=== PATIENT | male | born 1980 | race Caucasian/White ===

== ENCOUNTER 2021-05-20 10:32 | Inpatient (IN) | payer MEDICAID, SELFPAY ==
[2021-05-20] VITALS (8 sets, daily range): BP systolic 110–148; BP diastolic 54–75; PULSE 84–100; RESP 10–18; TEMP 37.2–38.5; O2SAT 96–99; BMI 20.3; BMI 20.8
--- NOTE | 2021-05-20 | ECG_ITS ---
Test Reason : ABD PAIN Blood Pressure : / mmHG Vent. Rate : 087 BPM Atrial Rate : 000 BPM P-R Int : 000 ms QRS Dur : 086 ms QT Int : 362 ms P-R-T Axes : 000 043 050 degrees QTc Int : 435 ms Artifact in tracing Likely sinus rhythm Minimal voltage criteria for LVH, may be normal variant ( Sokolow-Bonds ) Nonspecific ST and T wave abnormality Abnormal ECG No previous ECGs available Referred By: Generic ED Physician Electronically Signed By:STEPHEN TOM
--- NOTE | ~2021-05-20 | US_ITS ---
EXAMINATION: US ABDOMEN LIMITED CLINICAL INFORMATION: Elevated bilirubin, AST, ALT. Alcoholic hepatitis. History jaundice. COMPARISON: None TECHNIQUE: Real-time imaging of the right upper quadrant abdominal viscera. FINDINGS: PANCREAS: Obscured by bowel gas. LIVER: The liver is upper limits of normal, 19 cm in length and smooth contours. There is increased hepatic parenchymal echogenicity suggesting hepatic steatosis. There is no focal hepatic parenchymal lesion. Doppler shows hepatofugal portal flow away from the liver towards the spleen. Short segment splenic vein also interrogated and shows flow towards the spleen. There is mild intrahepatic biliary ductal dilatation. GALLBLADDER: Gallbladder is normal in size, 3 cm in diameter. There is circumferential wall thickening, 4-6 mm. Patient is tender in the area of the gallbladder with transducer compression. There is dependent sludge seen in the lumen. No focal calculus. No wall hyperemia on color Doppler. COMMON BILE DUCT: Borderline enlarged, measuring 0.7 cm. No visible ductal calculus or sludge. RIGHT KIDNEY: Right kidney measures 12.3 cm in length. There is no hydronephrosis. There are 2 specular echoes in the interpolar region without shadowing each under 4 mm. Possibility of nonobstructing calculi cannot be excluded. FREE FLUID: None. US/US abdomen limited IMPRESSION: 1. Mild intrahepatic biliary ductal dilatation. Common duct mildly enlarged at 7 mm. No visible ductal calculus or ductal sludge. 2. Dependent sludge in gallbladder lumen. No visible calculus. Circumferential gallbladder wall thickening 4-6 mm with positive sonographic Gilmore's sign. No pericholecystic fluid. 3. Diffuse hepatic steatosis. Liver surface is smooth. Color Doppler shows hepatofugal flow in portal vein, away from the liver and towards the spleen. No right upper quadrant ascites. 4. Pancreas obscured by bowel gas.
--- NOTE | ~2021-05-20 | CT_ITS ---
EXAMINATION: CT ABDOMEN AND PELVIS WITHOUT CONTRAST CLINICAL INFORMATION: Reevaluate diverticular abscess COMPARISON: 05/20/2021 TECHNIQUE: Multidetector volumetric imaging was performed from the superior aspect of the liver through the pubic symphysis. Sagittal and coronal reformatted images were obtained on the technologist's workstation. This CT examination was performed using dose optimization techniques as appropriate, variously including the following: *Automated exposure control *Adjustment of mA and/or kV according to patient size (this includes techniques or standardized protocols for targeted exams where dose is matched to indication/reason for exam; i.e. extremities or head) *Use of iterative reconstruction technique DLP: 486 mGy-cm FINDINGS: LUNG BASES: The visualized lung bases are unremarkable. LIVER, GALLBLADDER, AND BILIARY TREE: The liver is enlarged measuring 21 cm in CC dimension. Low attenuation with normal shape of the liver with no focal lesion. No biliary ductal dilatation. Trace perihepatic ascites. Distended gallbladder, increased from prior. No stones are seen. No definite wall thickening. PANCREAS: Unremarkable. SPLEEN: Unremarkable. ADRENAL GLANDS: Unremarkable. KIDNEYS AND URETERS: The kidneys are normal in size, shape, and attenuation. No hydronephrosis, hydroureter, or calculi seen. Improvement of previous left hydroureteronephrosis. Mild symmetric perinephric stranding.. BLADDER: Unremarkable. GASTROINTESTINAL TRACT: Stomach is unremarkable. Normal caliber small bowel. There is no obstruction. Extensive colonic diverticulosis. Persistent sigmoid colonic wall thickening with adjacent inflammation. Redemonstration of the peridiverticular abscess. Air-fluid level again noted. This measures 4.4 x 2.5 cm in transaxial dimension. This is similar to prior. No free air. ABDOMINAL WALL: No significant hernia is appreciated. LYMPH NODES: Normal. VASCULAR: Normal caliber aorta. Prominent varices in the retroperitoneum. PELVIC VISCERA: The prostate and seminal vesicles are unremarkable. OSSEOUS STRUCTURES: No acute or suspicious osseous abnormality. CT/CT abdomen pelvis wo con IMPRESSION: Persistent sigmoid diverticulitis. Similar size of the peridiverticular abscess compared to prior. Improvement of previous left hydroureteronephrosis. Patient has known cirrhosis. Increased distention of the gallbladder compared to prior. Fleischner guidelines were followed.
--- NOTE | ~2021-05-20 | CT_ITS ---
EXAMINATION: CT ABDOMEN AND PELVIS WITH CONTRAST CLINICAL INFORMATION: Abdominal pain COMPARISON: Ultrasound from today TECHNIQUE: Multidetector volumetric images were obtained from the superior aspect of the liver through the pubic symphysis following administration 85 mL of Omnipaque 350 intravenous contrast. Sagittal and coronal reformatted images were obtained on the technologist's workstation. Oral contrast: No This CT examination was performed using dose optimization techniques as appropriate, variously including the following: *Automated exposure control *Adjustment of mA and/or kV according to patient size (this includes techniques or standardized protocols for targeted exams where dose is matched to indication/reason for exam; i.e. extremities or head) *Use of iterative reconstruction technique DLP: 419 mGy-cm FINDINGS: LUNG BASES: Minimal right basilar atelectasis. LIVER, GALLBLADDER, AND BILIARY TREE: The liver is normal in size and shape with decreased attenuation. No focal hepatic lesion or biliary ductal dilatation is present. Normal distended gallbladder. Mild gallbladder wall thickening is suspected, as seen on prior ultrasound. No significant pericholecystic fluid. PANCREAS: Unremarkable. SPLEEN: Unremarkable. ADRENAL GLANDS: Unremarkable. KIDNEYS AND URETERS: The kidneys are normal in size, shape, and attenuation. There is mild left hydroureteronephrosis. The ureter is dilated to the level of the pelvic inflammation. No calculi. BLADDER: Unremarkable. GASTROINTESTINAL TRACT: The stomach is unremarkable. Normal caliber small bowel. No obstruction. There is diffuse colonic diverticulosis. Wall thickening of the sigmoid colon with adjacent inflammatory changes. This is consistent with diverticulitis. There is a peridiverticular abscess to the left of the sigmoid colon. This measures 4.9 x 2.8 x 3.5 cm. There is an air fluid level internally. No free intraperitoneal air. Normal appendix. ABDOMINAL WALL: No significant hernia is appreciated. LYMPH NODES: Normal. VASCULAR: Normal caliber aorta. Prominent varices are seen in the left upper abdomen and left periaortic region. The splenic vein is not well-defined. The portal vein is patent. PELVIC VISCERA: The prostate and seminal vesicles are unremarkable. OSSEOUS STRUCTURES: No acute or suspicious osseous abnormality. CT/CT abdomen pelvis w con IMPRESSION: Sigmoid diverticulitis with peridiverticular abscess. No free air. Left hydroureteronephrosis, likely associated with the pelvic inflammation. No calculi. Hepatic steatosis. Prominent abdominal varices are seen. Patient has known diagnosis of cirrhosis. Mild gallbladder wall thickening again noted as seen on recent ultrasound. This is nonspecific in the setting of liver disease. Fleischner guidelines were followed. This critical result was discussed with MICK Pace MD by telephone at 05/20/2021 5:06 PM and it was ascertained that the content and urgency of the report was understood at the time of direct communication.
--- NOTE | ~2021-05-20 | XR_ITS ---
EXAMINATION: XR CHEST CLINICAL INFORMATION: EtOH withdrawal. Hallucinations. COMPARISON: None TECHNIQUE: AP portable view of the chest was obtained. FINDINGS: No significant abnormality is noted involving the heart, lungs, mediastinum, bony thorax or soft tissues. XR/XR chest 1V IMPRESSION: No acute disease.
--- NOTE | 2021-05-20 12:44 | ED_ITS ---
HPI - Abdominal Pain General Chief Complaint: Abdominal Pain <MICK El Last Filed: 05/20/21 15:07> Stated Complaint: sharp pain body aches <MICK El Last Filed: 05/20/21 15:07> Time Seen by Provider: 05/20/21 12:17 <MICK El Last Filed: 05/20/21 15:07> Source: patient <MICK El Last Filed: 05/20/21 15:07> Mode of arrival: ambulatory <MICK El Last Filed: 05/20/21 15:07> History of Present Illness HPI narrative: 41-year-old male with past medical history of ETOH abuse, cirrhosis, presenting to the ED complaining of upper abdominal, nausea, vomiting, decreased p.o. intake, jaundice, and visual hallucinations worsening x couple days. Reports drinks about 8 nips daily, has been trying to cut back, drank 3 beers [place] and 1 beer yesterday, and had visual hallucinations of to people trying to steal something in his yard yesterday and called pushcart peddler however nobody was there. Also reports auditory hallucinations. Denies known history of alcohol withdrawal seizures. Also reports occasional cocaine use. Reports fever of 103 yesterday. Denies CP, SOB, pedal edema <MICK El - Last Filed: 05/20/21 15:07> MD elicited complaint: abdominal pain <MICK El - Last Filed: 05/20/21 15:07> Related Data Home Medications: Home Medications Medication Instructions Recorded Confirmed ibuprofen 200 mg tablet 400 mg PO Q6H PRN 05/20/21 05/20/21 <MICK El Last Filed: 05/20/21 15:07> Allergies/Adverse Reactions: Allergies Allergy/AdvReac Type Severity Reaction Status Date / Time No Known Allergies Allergy Unverified 02/13/20 16:10 <MICK El Last Filed: 05/20/21 15:07> Review of Systems Review of Systems Constitutional: No Fever, No Chills, No Fatigue, No Malaise ENT/Mouth: No Ear Pain, No Nasal Congestion, No sore throat, No Rhinorrhea, No Swallowing Difficulty Eyes: No Eye Pain, No Swelling, No Redness Cardiovascular: No Chest Pain, No SOB, No Edema, No Palpitations Respiratory: No Cough, No Sputum, No Dyspnea Gastrointestinal: + Nausea, + Vomiting, No Diarrhea, + Constipation, + Abdominal pain Genitourinary: No Urinary Frequency, No Hematuria, No Flank Pain Musculoskeletal: No joint pain, No Myalgias, No Joint Swelling Skin: + jaundice, No rash Neuro: No Weakness, No Loss of Consciousness, No Headache Psych: No Anxiety/Panic, No Depression, + visual and auditory hallucinations <MICK El Last Filed: 05/20/21 15:07> Yes all other systems are reviewed and are negative <MICK El - Last Filed: 05/20/21 15:07> Physical Exam Vital Signs: Vital Signs: Last Vital Signs Temp 99.3 F 05/20/21 16:52 Pulse 84 05/20/21 16:52 Resp 16 05/20/21 16:52 BP 110/60 05/20/21 16:52 Pulse Ox 99 05/20/21 16:52 BMI result Body Mass Index 20.3 <MICK El - Last Filed: 05/20/21 15:07> Vital Signs: Last Vital Signs Temp 99.3 F 05/20/21 16:52 Pulse 84 05/20/21 16:52 Resp 16 05/20/21 16:52 BP 110/60 05/20/21 16:52 Pulse Ox 99 05/20/21 16:52 BMI result Body Mass Index 20.3 <MICK Pace - Last Filed: 05/20/21 17:31> Const: Other: Jaundice <MICK El Last Filed: 05/20/21 15:07> General: cooperative, alert and awake <MICK El - Last Filed: 05/20/21 15:07> Orientation/consciousness: patient oriented x3 <MICK El Last Filed: 05/20/21 15:07> Limitations: no limitations <MICK El Last Filed: 05/20/21 15:07> HENMT: Other: Dry mucous membranes. Scleral icterus <MICK El Last Filed: 05/20/21 15:07> Head: Yes normal to inspection <MICK El Last Filed: 05/20/21 15:07> Ears: hearing grossly normal bilaterally <Bety Rodriguez MA - Last Filed: 05/20/21 15:07> General nose exam: Normal external nose present <Bety Rodriguez MA - Last Filed: 05/20/21 15:07> Face and sinus: Yes normal facial exam <Bety Rodriguez MA - Last Filed: 05/20/21 15:07> Throat: Yes posterior oropharynx normal <Bety Rodriguez MA - Last Filed: 05/20/21 15:07> Eyes: General: appearance normal, both eyes and all related structures <Bety Rodriguez, MA - Last Filed: 05/20/21 15:07> Pupils: Equal, round and reactive pupils present <Bety Rodriguez MA - Last Filed: 05/20/21 15:07> EOM: EOMs intact bilaterally <Bety Rodriguez MA - Last Filed: 05/20/21 15:07> Neck: Neck: Yes normal visual inspection and Yes no meningeal signs <Bety Rodriguez MA - Last Filed: 05/20/21 15:07> Resp: Effort & Inspection: normal respiratory effort <Bety Rodriguez MA - Last Filed: 05/20/21 15:07> Auscultation: clear to auscultation bilaterally, no rales, no rhonchi and no wheezes <Bety Rodriguez MA - Last Filed: 05/20/21 15:07> Cardio: Rate: regular rate <Bety Rodriguez MA - Last Filed: 05/20/21 15:07> Heart sounds: S1 normal heart sound present and S2 normal heart sound present <Bety Rodriguez MA - Last Filed: 05/20/21 15:07> GI: Inspection: Yes normal to inspection <Bety [facility] MA - Last Filed: 05/20/21 15:07> Palpation (GI): Soft to palpation, Tenderness to palpation present (GI) in the epigastrum and in the RUQ, no guarding and not rigid <Bety Michael MA - Last Filed: 05/20/21 15:07> Skin: Rashes: no rashes <Bety Michael, MA - Last Filed: 05/20/21 15:07> Wounds: no wounds <MICK El - Last Filed: 05/20/21 15:07> Neuro: General: patient oriented x3 and no meningeal signs <MICK El - Last Filed: 05/20/21 15:07> Cranial nerves: Yes Equal, round and reactive pupils present <MICK El - Last Filed: 05/20/21 15:07> Gait exam (Neuro): Normal gait present <MICK El - Last Filed: 05/20/21 15:07> Extrem: General: Yes normal to inspection and Yes no pedal edema <MICK El - Last Filed: 05/20/21 15:07> Course Course Course Narrative: -1403--mild leukocytosis of 11.6. Platelets low at 73. INR elevated at 2.3. Magnesium low at 1.1 >> 2g IV repletion ordered -lactic acid negative. Patient does not meet severe sepsis criteria at this time. Bilirubin elevated 10.3, AST/ALT elevated, alk-phos elevated, ammonia 75 > empiric IV Rocephin ordered. Low concern for SBP, no appreciable ascites XR chest 1V IMPRESSION: No acute disease. >>Will obtain right upper quadrant ultrasound to rule out stone/ obstruction -1400--ED care transferred to [facility] pending ultrasound and anticipated admission <MICK El - Last Filed: 05/20/21 15:07> Reevaluation(s) Reevaluation #1: Ordered CT which shows diverticulitis with 5 cm abscess with no free air but the abscess is causing a left hydronephrosis. 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 Patient's INR is 2.3. Spoke to General surgery,Dr Paz, who would like to drain abscess, but interventional Radiology will not touch patient with INR so high. Suggestion patient going to medical service and Dr. Paz will consult Ordered Zosyn, vitamin K. Pt being admitted to Dr Jones <MICK Pace - Last Filed: 05/20/21 17:31> MDM - Abdominal Pain MDM Narrative Medical decision making narrative: 41-year-old male with past medical history of ETOH abuse, cirrhosis, presenting to the ED complaining of upper abdominal, nausea, vomiting, decreased p.o. intake, jaundice, and visual hallucinations worsening x couple days. On exam vital signs stable, jaundiced with scleral icterus, abdomen soft with epigastric/RUQ TTP, awake and. Concern for alcoholic hallucinosis/withdrawal vs pancreatitis/alcoholic hepatitis. Rule out metabolic/infectious etiologies Plan: EKG, labs, UA, CXR, IVF, initiate phenobarb protocol, thiamine/folate/multivitamin, admission <MICK El - Last Filed: 05/20/21 15:07> Differential Diagnosis Differential diagnosis: Likely abdominal pain, constipation and pancreatitis <MICK El - Last Filed: 05/20/21 15:07> Medical Records Attestation: I reviewed the patient's medical records. <MICK El - Last Filed: 05/20/21 15:07> Lab Data Attestation: I reviewed the patient's lab results. <MICK El - Last Filed: 05/20/21 15:07> Result diagrams: : 05/20/21 13:04 05/20/21 13:04 <MICK El - Last Filed: 05/20/21 15:07> Labs: Lab Results 05/20/21 05/20/21 05/20/21 Range/Units 13:04 13:04 13:04 WBC 11.6 H (4.8-10.8) X10*3/uL RBC 2.70 L (4.60-5.80) X10*6/uL Hgb 9.8 L (14.0-18.0) g/dl Hct 28.1 L (42.0-52.0) % MCV 104.1 H (80.0-98.0) fL MCH 36.3 H (27.0-33.0) pg MCHC 34.9 (31.0-36.0) g/dl RDW 14.2 (11.0-16.0) % Plt Count 73 L (160-400) X10*3/uL MPV 10.3 (9.4-12.4) fL Immature Gran % (Auto) 0.6 H (0.0-0.4) % Neut % (Auto) 81.0 H (45-73) % Lymph % (Auto) 9.5 L (20-40) % Granite % (Auto) 8.3 (2-11) % Eos % (Auto) 0.2 (0-4) % Baso % (Auto) 0.4 (0-2) % Lymph # (Auto) 1.1 L (1.2-4.9) X10*3/uL [place]ite # (Auto) 1.0 (0.1-1.2) X10*3/uL Eos # (Auto) 0.0 (0.0-0.4) X10*3/uL Baso # (Auto) 0.1 (0.0-0.2) X10*3/uL Abs Immat Gran (auto) 0.07 H (0.00-0.03) X10*3/uL Absolute Neuts (auto) 9.4 H (2.0-8.3) x10*3/uL Absolute Nucleated RBC 0.000 (0.0-0.012) X10*3/uL Nucleated RBC % (auto) 0.0 (0.0-0.2) /100WBC PT 26.9 H (9.9-13.0) SEC INR 2.3 H (0.9-1.1) APTT 40.0 H (24.1-38.0) SEC Sodium 134 L (135-145) mmol/L Potassium 3.7 (3.3-5.1) mmol/L Chloride 99 (96-108) mmol/L Carbon Dioxide 26 (22-29) mmol/L Anion Gap 13 (12-20) BUN 9 (9-16) mg/dL Creatinine 0.77 (0.5-1.4) mg/dL Estim Creat Clear Calc 121.4 Estimated GFR > 60 Random Glucose 131 H (60-115) mg/dL Lactic Acid (0.5-2.0) mmol/L Calcium 8.4 (8.4-10.2) mg/dL Magnesium (1.6-2.6) mg/dL Total Bilirubin 10.3 H (0.0-1.0) mg/dL AST 173 H (5-37) U/L ALT 42 H (0-40) U/L Alkaline Phosphatase 285 H (39-117) U/L Ammonia (13-55) umol/L Total Protein 8.0 (6.5-8.0) g/dL Albumin 3.1 L (3.5-5.0) g/dL Lipase (8-78) U/L Urine Color Urine Appearance Urine pH (5.0-8.0) Ur Specific [place] (1.005-1.025) Urine Protein (NEG-TRACE) MG/DL Urine Glucose (UA) (NEG) MG/DL Urine Ketones (NEG) MG/DL Urine Blood (NEG) Urine Nitrite (NEG) Ur Leukocyte Esterase (NEG) Urine RBC (0) /HPF Urine WBC (0-4) /HPF Ur Squamous Epith Cells /LPF Urine Bacteria /LPF Urine Mucus /LPF Urine Opiates Screen (Not Detect) Urine Fentanyl Screen (Not Detect) Ur Barbiturates Screen (Not Detect) Ur Phencyclidine Scrn (Not Detect) Ur Amphetamines Screen (Not Detect) U Benzodiazepines Scrn (Not Detect) Urine Cocaine Screen (Not Detect) U Marijuana (THC) Screen (Not Detect) Ethyl Alcohol mg/dL COVID-19 (YESSI) (Negative) COVID-19 Clin Com 05/20/21 05/20/21 05/20/21 Range/Units 13:04 13:04 13:04 WBC (4.8-10.8) X10*3/uL RBC (4.60-5.80) X10*6/uL Hgb (14.0-18.0) g/dl Hct (42.0-52.0) % MCV (80.0-98.0) fL MCH (27.0-33.0) pg MCHC (31.0-36.0) g/dl RDW (11.0-16.0) % Plt Count (160-400) X10*3/uL MPV (9.4-12.4) fL Immature Gran % (Auto) (0.0-0.4) % Neut % (Auto) (45-73) % Lymph % (Auto) (20-40) % [place]ite % (Auto) (2-11) % Eos % (Auto) (0-4) % Baso % (Auto) (0-2) % Lymph # (Auto) (1.2-4.9) X10*3/uL [place]ite # (Auto) (0.1-1.2) X10*3/uL Eos # (Auto) (0.0-0.4) X10*3/uL Baso # (Auto) (0.0-0.2) X10*3/uL Abs Immat Gran (auto) (0.00-0.03) X10*3/uL Absolute Neuts (auto) (2.0-8.3) x10*3/uL Absolute Nucleated RBC (0.0-0.012) X10*3/uL Nucleated RBC % (auto) (0.0-0.2) /100WBC PT (9.9-13.0) SEC INR (0.9-1.1) APTT (24.1-38.0) SEC Sodium (135-145) mmol/L Potassium (3.3-5.1) mmol/L Chloride (96-108) mmol/L Carbon Dioxide (22-29) mmol/L Anion Gap (12-20) BUN (9-16) mg/dL Creatinine (0.5-1.4) mg/dL Estim Creat Clear Calc Estimated GFR Random Glucose (60-115) mg/dL Lactic Acid 1.8 (0.5-2.0) mmol/L Calcium (8.4-10.2) mg/dL Magnesium 1.1 L* (1.6-2.6) mg/dL Total Bilirubin (0.0-1.0) mg/dL AST (5-37) U/L ALT (0-40) U/L Alkaline Phosphatase (39-117) U/L Ammonia (13-55) umol/L Total Protein (6.5-8.0) g/dL Albumin (3.5-5.0) g/dL Lipase 15 (8-78) U/L Urine Color Urine Appearance Urine pH (5.0-8.0) Ur Specific [place] (1.005-1.025) Urine Protein (NEG-TRACE) MG/DL Urine Glucose (UA) (NEG) MG/DL Urine Ketones (NEG) MG/DL Urine Blood (NEG) Urine Nitrite (NEG) Ur Leukocyte Esterase (NEG) Urine RBC (0) /HPF Urine WBC (0-4) /HPF Ur Squamous Epith Cells /LPF Urine Bacteria /LPF Urine Mucus /LPF Urine Opiates Screen (Not Detect) Urine Fentanyl Screen (Not Detect) Ur Barbiturates Screen (Not Detect) Ur Phencyclidine Scrn (Not Detect) Ur Amphetamines Screen (Not Detect) U Benzodiazepines Scrn (Not Detect) Urine Cocaine Screen (Not Detect) U Marijuana (THC) Screen (Not Detect) Ethyl Alcohol < 10 mg/dL COVID-19 (YESSI) (Negative) COVID-19 Clin Com 05/20/21 05/20/21 05/20/21 Range/Units 13:04 13:04 16:51 WBC (4.8-10.8) X10*3/uL RBC (4.60-5.80) X10*6/uL Hgb (14.0-18.0) g/dl Hct (42.0-52.0) % MCV (80.0-98.0) fL MCH (27.0-33.0) pg MCHC (31.0-36.0) g/dl RDW (11.0-16.0) % Plt Count (160-400) X10*3/uL MPV (9.4-12.4) fL Immature Gran % (Auto) (0.0-0.4) % Neut % (Auto) (45-73) % Lymph % (Auto) (20-40) % [place]ite % (Auto) (2-11) % Eos % (Auto) (0-4) % Baso % (Auto) (0-2) % Lymph # (Auto) (1.2-4.9) X10*3/uL [place] # (Auto) (0.1-1.2) X10*3/uL Eos # (Auto) (0.0-0.4) X10*3/uL Baso # (Auto) (0.0-0.2) X10*3/uL Abs Immat Gran (auto) (0.00-0.03) X10*3/uL Absolute Neuts (auto) (2.0-8.3) x10*3/uL Absolute Nucleated RBC (0.0-0.012) X10*3/uL Nucleated RBC % (auto) (0.0-0.2) /100WBC PT (9.9-13.0) SEC INR (0.9-1.1) APTT (24.1-38.0) SEC Sodium (135-145) mmol/L Potassium (3.3-5.1) mmol/L Chloride (96-108) mmol/L Carbon Dioxide (22-29) mmol/L Anion Gap (12-20) BUN (9-16) mg/dL Creatinine (0.5-1.4) mg/dL Estim Creat Clear Calc Estimated GFR Random Glucose (60-115) mg/dL Lactic Acid (0.5-2.0) mmol/L Calcium (8.4-10.2) mg/dL Magnesium (1.6-2.6) mg/dL Total Bilirubin (0.0-1.0) mg/dL AST (5-37) U/L ALT (0-40) U/L Alkaline Phosphatase (39-117) U/L Ammonia 75 H (13-55) umol/L Total Protein (6.5-8.0) g/dL Albumin (3.5-5.0) g/dL Lipase (8-78) U/L Urine Color YELLOW Urine Appearance CLEAR Urine pH 7.5 (5.0-8.0) Ur Specific [place] 1.010 (1.005-1.025) Urine Protein 1+ H (NEG-TRACE) MG/DL Urine Glucose (UA) NEG (NEG) MG/DL Urine Ketones 5 (NEG) MG/DL Urine Blood NEG (NEG) Urine Nitrite NEG (NEG) Ur Leukocyte Esterase NEG (NEG) Urine RBC 0-2 (0) /HPF Urine WBC 0-2 (0-4) /HPF Ur Squamous Epith Cells 1+ /LPF Urine Bacteria NONE /LPF Urine Mucus 2+ /LPF Urine Opiates Screen (Not Detect) Urine Fentanyl Screen (Not Detect) Ur Barbiturates Screen (Not Detect) Ur Phencyclidine Scrn (Not Detect) Ur Amphetamines Screen (Not Detect) U Benzodiazepines Scrn (Not Detect) Urine Cocaine Screen (Not Detect) U Marijuana (THC) Screen (Not Detect) Ethyl Alcohol mg/dL COVID-19 (YESSI) Negative (Negative) COVID-19 Clin Com See Note 05/20/21 Range/Units 16:51 WBC (4.8-10.8) X10*3/uL RBC (4.60-5.80) X10*6/uL Hgb (14.0-18.0) g/dl Hct (42.0-52.0) % MCV (80.0-98.0) fL MCH (27.0-33.0) pg MCHC (31.0-36.0) g/dl RDW (11.0-16.0) % Plt Count (160-400) X10*3/uL MPV (9.4-12.4) fL Immature Gran % (Auto) (0.0-0.4) % Neut % (Auto) (45-73) % Lymph % (Auto) (20-40) % [place]ite % (Auto) (2-11) % Eos % (Auto) (0-4) % Baso % (Auto) (0-2) % Lymph # (Auto) (1.2-4.9) X10*3/uL [place] # (Auto) (0.1-1.2) X10*3/uL Eos # (Auto) (0.0-0.4) X10*3/uL Baso # (Auto) (0.0-0.2) X10*3/uL Abs Immat Gran (auto) (0.00-0.03) X10*3/uL Absolute Neuts (auto) (2.0-8.3) x10*3/uL Absolute Nucleated RBC (0.0-0.012) X10*3/uL Nucleated RBC % (auto) (0.0-0.2) /100WBC PT (9.9-13.0) SEC INR (0.9-1.1) APTT (24.1-38.0) SEC Sodium (135-145) mmol/L Potassium (3.3-5.1) mmol/L Chloride (96-108) mmol/L Carbon Dioxide (22-29) mmol/L Anion Gap (12-20) BUN (9-16) mg/dL Creatinine (0.5-1.4) mg/dL Estim Creat Clear Calc Estimated GFR Random Glucose (60-115) mg/dL Lactic Acid (0.5-2.0) mmol/L Calcium (8.4-10.2) mg/dL Magnesium (1.6-2.6) mg/dL Total Bilirubin (0.0-1.0) mg/dL AST (5-37) U/L ALT (0-40) U/L Alkaline Phosphatase (39-117) U/L Ammonia (13-55) umol/L Total Protein (6.5-8.0) g/dL Albumin (3.5-5.0) g/dL Lipase (8-78) U/L Urine Color Urine Appearance Urine pH (5.0-8.0) Ur Specific [place] (1.005-1.025) Urine Protein (NEG-TRACE) MG/DL Urine Glucose (UA) (NEG) MG/DL Urine Ketones (NEG) MG/DL Urine Blood (NEG) Urine Nitrite (NEG) Ur Leukocyte Esterase (NEG) Urine RBC (0) /HPF Urine WBC (0-4) /HPF Ur Squamous Epith Cells /LPF Urine Bacteria /LPF Urine Mucus /LPF Urine Opiates Screen Not Detected (Not Detect) Urine Fentanyl Screen Not Detected (Not Detect) Ur Barbiturates Screen POSITIVE H (Not Detect) Ur Phencyclidine Scrn Not Detected (Not Detect) Ur Amphetamines Screen Not Detected (Not Detect) U Benzodiazepines Scrn Not Detected (Not Detect) Urine Cocaine Screen POSITIVE H (Not Detect) U Marijuana (THC) Screen Not Detected (Not Detect) Ethyl Alcohol mg/dL COVID-19 (YESSI) (Negative) COVID-19 Clin Com <MICK El - Last Filed: 05/20/21 15:07> Lab Results 05/20/21 05/20/21 05/20/21 Range/Units 13:04 13:04 13:04 WBC 11.6 H (4.8-10.8) X10*3/uL RBC 2.70 L (4.60-5.80) X10*6/uL Hgb 9.8 L (14.0-18.0) g/dl Hct 28.1 L (42.0-52.0) % MCV 104.1 H (80.0-98.0) fL MCH 36.3 H (27.0-33.0) pg MCHC 34.9 (31.0-36.0) g/dl RDW 14.2 (11.0-16.0) % Plt Count 73 L (160-400) X10*3/uL MPV 10.3 (9.4-12.4) fL Immature Gran % (Auto) 0.6 H (0.0-0.4) % Neut % (Auto) 81.0 H (45-73) % Lymph % (Auto) 9.5 L (20-40) % [place] % (Auto) 8.3 (2-11) % Eos % (Auto) 0.2 (0-4) % Baso % (Auto) 0.4 (0-2) % Lymph # (Auto) 1.1 L (1.2-4.9) X10*3/uL [place] # (Auto) 1.0 (0.1-1.2) X10*3/uL Eos # (Auto) 0.0 (0.0-0.4) X10*3/uL Baso # (Auto) 0.1 (0.0-0.2) X10*3/uL Abs Immat Gran (auto) 0.07 H (0.00-0.03) X10*3/uL Absolute Neuts (auto) 9.4 H (2.0-8.3) x10*3/uL Absolute Nucleated RBC 0.000 (0.0-0.012) X10*3/uL Nucleated RBC % (auto) 0.0 (0.0-0.2) /100WBC PT 26.9 H (9.9-13.0) SEC INR 2.3 H (0.9-1.1) APTT 40.0 H (24.1-38.0) SEC Sodium 134 L (135-145) mmol/L Potassium 3.7 (3.3-5.1) mmol/L Chloride 99 (96-108) mmol/L Carbon Dioxide 26 (22-29) mmol/L Anion Gap 13 (12-20) BUN 9 (9-16) mg/dL Creatinine 0.77 (0.5-1.4) mg/dL Estim Creat Clear Calc 121.4 Estimated GFR > 60 Random Glucose 131 H (60-115) mg/dL Lactic Acid (0.5-2.0) mmol/L Calcium 8.4 (8.4-10.2) mg/dL Magnesium (1.6-2.6) mg/dL Total Bilirubin 10.3 H (0.0-1.0) mg/dL AST 173 H (5-37) U/L ALT 42 H (0-40) U/L Alkaline Phosphatase 285 H (39-117) U/L Ammonia (13-55) umol/L Total Protein 8.0 (6.5-8.0) g/dL Albumin 3.1 L (3.5-5.0) g/dL Lipase (8-78) U/L Urine Color Urine Appearance Urine pH (5.0-8.0) Ur Specific [place] (1.005-1.025) Urine Protein (NEG-TRACE) MG/DL Urine Glucose (UA) (NEG) MG/DL Urine Ketones (NEG) MG/DL Urine Blood (NEG) Urine Nitrite (NEG) Ur Leukocyte Esterase (NEG) Urine RBC (0) /HPF Urine WBC (0-4) /HPF Ur Squamous Epith Cells /LPF Urine Bacteria /LPF Urine Mucus /LPF Urine Opiates Screen (Not Detect) Urine Fentanyl Screen (Not Detect) Ur Barbiturates Screen (Not Detect) Ur Phencyclidine Scrn (Not Detect) Ur Amphetamines Screen (Not Detect) U Benzodiazepines Scrn (Not Detect) Urine Cocaine Screen (Not Detect) U Marijuana (THC) Screen (Not Detect) Ethyl Alcohol mg/dL COVID-19 (YESSI) (Negative) COVID-19 Clin Com 05/20/21 05/20/21 05/20/21 Range/Units 13:04 13:04 13:04 WBC (4.8-10.8) X10*3/uL RBC (4.60-5.80) X10*6/uL Hgb (14.0-18.0) g/dl Hct (42.0-52.0) % MCV (80.0-98.0) fL MCH (27.0-33.0) pg MCHC (31.0-36.0) g/dl RDW (11.0-16.0) % Plt Count (160-400) X10*3/uL MPV (9.4-12.4) fL Immature Gran % (Auto) (0.0-0.4) % Neut % (Auto) (45-73) % Lymph % (Auto) (20-40) % [place] % (Auto) (2-11) % Eos % (Auto) (0-4) % Baso % (Auto) (0-2) % Lymph # (Auto) (1.2-4.9) X10*3/uL [place] # (Auto) (0.1-1.2) X10*3/uL Eos # (Auto) (0.0-0.4) X10*3/uL Baso # (Auto) (0.0-0.2) X10*3/uL Abs Immat Gran (auto) (0.00-0.03) X10*3/uL Absolute Neuts (auto) (2.0-8.3) x10*3/uL Absolute Nucleated RBC (0.0-0.012) X10*3/uL Nucleated RBC % (auto) (0.0-0.2) /100WBC PT (9.9-13.0) SEC INR (0.9-1.1) APTT (24.1-38.0) SEC Sodium (135-145) mmol/L Potassium (3.3-5.1) mmol/L Chloride (96-108) mmol/L Carbon Dioxide (22-29) mmol/L Anion Gap (12-20) BUN (9-16) mg/dL Creatinine (0.5-1.4) mg/dL Estim Creat Clear Calc Estimated GFR Random Glucose (60-115) mg/dL Lactic Acid 1.8 (0.5-2.0) mmol/L Calcium (8.4-10.2) mg/dL Magnesium 1.1 L* (1.6-2.6) mg/dL Total Bilirubin (0.0-1.0) mg/dL AST (5-37) U/L ALT (0-40) U/L Alkaline Phosphatase (39-117) U/L Ammonia (13-55) umol/L Total Protein (6.5-8.0) g/dL Albumin (3.5-5.0) g/dL Lipase 15 (8-78) U/L Urine Color Urine Appearance Urine pH (5.0-8.0) Ur Specific [place] (1.005-1.025) Urine Protein (NEG-TRACE) MG/DL Urine Glucose (UA) (NEG) MG/DL Urine Ketones (NEG) MG/DL Urine Blood (NEG) Urine Nitrite (NEG) Ur Leukocyte Esterase (NEG) Urine RBC (0) /HPF Urine WBC (0-4) /HPF Ur Squamous Epith Cells /LPF Urine Bacteria /LPF Urine Mucus /LPF Urine Opiates Screen (Not Detect) Urine Fentanyl Screen (Not Detect) Ur Barbiturates Screen (Not Detect) Ur Phencyclidine Scrn (Not Detect) Ur Amphetamines Screen (Not Detect) U Benzodiazepines Scrn (Not Detect) Urine Cocaine Screen (Not Detect) U Marijuana (THC) Screen (Not Detect) Ethyl Alcohol < 10 mg/dL COVID-19 ([facility]ESSI) (Negative) COVID-19 Clin Com 05/20/21 05/20/21 05/20/21 Range/Units 13:04 13:04 16:51 WBC (4.8-10.8) X10*3/uL RBC (4.60-5.80) X10*6/uL Hgb (14.0-18.0) g/dl Hct (42.0-52.0) % MCV (80.0-98.0) fL MCH (27.0-33.0) pg MCHC (31.0-36.0) g/dl RDW (11.0-16.0) % Plt Count (160-400) X10*3/uL MPV (9.4-12.4) fL Immature Gran % (Auto) (0.0-0.4) % Neut % (Auto) (45-73) % Lymph % (Auto) (20-40) % [place] % (Auto) (2-11) % Eos % (Auto) (0-4) % Baso % (Auto) (0-2) % Lymph # (Auto) (1.2-4.9) X10*3/uL [place]ite # (Auto) (0.1-1.2) X10*3/uL Eos # (Auto) (0.0-0.4) X10*3/uL Baso # (Auto) (0.0-0.2) X10*3/uL Abs Immat Gran (auto) (0.00-0.03) X10*3/uL Absolute Neuts (auto) (2.0-8.3) x10*3/uL Absolute Nucleated RBC (0.0-0.012) X10*3/uL Nucleated RBC % (auto) (0.0-0.2) /100WBC PT (9.9-13.0) SEC INR (0.9-1.1) APTT (24.1-38.0) SEC Sodium (135-145) mmol/L Potassium (3.3-5.1) mmol/L Chloride (96-108) mmol/L Carbon Dioxide (22-29) mmol/L Anion Gap (12-20) BUN (9-16) mg/dL Creatinine (0.5-1.4) mg/dL Estim Creat Clear Calc Estimated GFR Random Glucose (60-115) mg/dL Lactic Acid (0.5-2.0) mmol/L Calcium (8.4-10.2) mg/dL Magnesium (1.6-2.6) mg/dL Total Bilirubin (0.0-1.0) mg/dL AST (5-37) U/L ALT (0-40) U/L Alkaline Phosphatase (39-117) U/L Ammonia 75 H (13-55) umol/L Total Protein (6.5-8.0) g/dL Albumin (3.5-5.0) g/dL Lipase (8-78) U/L Urine Color YELLOW Urine Appearance CLEAR Urine pH 7.5 (5.0-8.0) Ur Specific [place] 1.010 (1.005-1.025) Urine Protein 1+ H (NEG-TRACE) MG/DL Urine Glucose (UA) NEG (NEG) MG/DL Urine Ketones 5 (NEG) MG/DL Urine Blood NEG (NEG) Urine Nitrite NEG (NEG) Ur Leukocyte Esterase NEG (NEG) Urine RBC 0-2 (0) /HPF Urine WBC 0-2 (0-4) /HPF Ur Squamous Epith Cells 1+ /LPF Urine Bacteria NONE /LPF Urine Mucus 2+ /LPF Urine Opiates Screen (Not Detect) Urine Fentanyl Screen (Not Detect) Ur Barbiturates Screen (Not Detect) Ur Phencyclidine Scrn (Not Detect) Ur Amphetamines Screen (Not Detect) U Benzodiazepines Scrn (Not Detect) Urine Cocaine Screen (Not Detect) U Marijuana (THC) Screen (Not Detect) Ethyl Alcohol mg/dL COVID-19 ([facility]ESSI) Negative (Negative) COVID-19 Clin Com See Note 05/20/21 Range/Units 16:51 WBC (4.8-10.8) X10*3/uL RBC (4.60-5.80) X10*6/uL Hgb (14.0-18.0) g/dl Hct (42.0-52.0) % MCV (80.0-98.0) fL MCH (27.0-33.0) pg MCHC (31.0-36.0) g/dl RDW (11.0-16.0) % Plt Count (160-400) X10*3/uL MPV (9.4-12.4) fL Immature Gran % (Auto) (0.0-0.4) % Neut % (Auto) (45-73) % Lymph % (Auto) (20-40) % [place] % (Auto) (2-11) % Eos % (Auto) (0-4) % Baso % (Auto) (0-2) % Lymph # (Auto) (1.2-4.9) X10*3/uL [place] # (Auto) (0.1-1.2) X10*3/uL Eos # (Auto) (0.0-0.4) X10*3/uL Baso # (Auto) (0.0-0.2) X10*3/uL Abs Immat Gran (auto) (0.00-0.03) X10*3/uL Absolute Neuts (auto) (2.0-8.3) x10*3/uL Absolute Nucleated RBC (0.0-0.012) X10*3/uL Nucleated RBC % (auto) (0.0-0.2) /100WBC PT (9.9-13.0) SEC INR (0.9-1.1) APTT (24.1-38.0) SEC Sodium (135-145) mmol/L Potassium (3.3-5.1) mmol/L Chloride (96-108) mmol/L Carbon Dioxide (22-29) mmol/L Anion Gap (12-20) BUN (9-16) mg/dL Creatinine (0.5-1.4) mg/dL Estim Creat Clear Calc Estimated GFR Random Glucose (60-115) mg/dL Lactic Acid (0.5-2.0) mmol/L Calcium (8.4-10.2) mg/dL Magnesium (1.6-2.6) mg/dL Total Bilirubin (0.0-1.0) mg/dL AST (5-37) U/L ALT (0-40) U/L Alkaline Phosphatase (39-117) U/L Ammonia (13-55) umol/L Total Protein (6.5-8.0) g/dL Albumin (3.5-5.0) g/dL Lipase (8-78) U/L Urine Color Urine Appearance Urine pH (5.0-8.0) Ur Specific [place] (1.005-1.025) Urine Protein (NEG-TRACE) MG/DL Urine Glucose (UA) (NEG) MG/DL Urine Ketones (NEG) MG/DL Urine Blood (NEG) Urine Nitrite (NEG) Ur Leukocyte Esterase (NEG) Urine RBC (0) /HPF Urine WBC (0-4) /HPF Ur Squamous Epith Cells /LPF Urine Bacteria /LPF Urine Mucus /LPF Urine Opiates Screen Not Detected (Not Detect) Urine Fentanyl Screen Not Detected (Not Detect) Ur Barbiturates Screen POSITIVE H (Not Detect) Ur Phencyclidine Scrn Not Detected (Not Detect) Ur Amphetamines Screen Not Detected (Not Detect) U Benzodiazepines Scrn Not Detected (Not Detect) Urine Cocaine Screen POSITIVE H (Not Detect) U Marijuana (THC) Screen Not Detected (Not Detect) Ethyl Alcohol mg/dL COVID-19 (YESSI) (Negative) COVID-19 Clin Com <MICK Pace - Last Filed: 05/20/21 17:31> Critical Care Time Critical Care Time Critical Care Time: Yes <MICK El - Last Filed: 05/20/21 15:07> Total Critical Care Time: 45 <MICK El - Last Filed: 05/20/21 15:07> Attestation: I have personally provided critical care time exclusive of time spent on separately billable procedures. Time includes review of lab data, radiology results, discussion with consultants, and monitoring for potential decompensation. Intervention performed as documented. <MICK El - Last Filed: 05/20/21 15:07> Discharge Plan Discharge Patient Disposition: Admitted As Inpatient <MICK El - Last Filed: 05/20/21 15:07> [facility] Past Medical History Attestation statement: The following information was validated with the patient. <MICK El - Last Filed: 05/20/21 15:07> Medical History: Medical History Alcohol abuse Liver failure <MICK El - Last Filed: 05/20/21 15:07> Social History Social History: Social History Alcohol intake: current Alcohol intake frequency: 3 or more drinks per day Alcohol type: beer, wine and hard liquor Patient Tobacco Use Status: Current everyday Tobacco user Use of substances other than those prescribed or required for medical reasons: No Advance Directives: No Advance Directives Information Provided: Yes <MICK El - Last Filed: 05/20/21 15:07>
[2021-05-20 13:12] LABS: MANUAL DIFF FLAG NO
[2021-05-20 13:14] LABS: Basophils Absolute Auto 0.1 X10*3/uL (0.0-0.2); Basophils Percent Auto 0.4 % (0-2); Eosinophils Percent Auto 0.2 % (0-4); Hematocrit 28.1 % (42.0-52.0); Hemoglobin 9.8 g/dl (14.0-18.0); Imm Gran Abs Auto 0.07 X10*3/uL (0.00-0.03); Imm Gran Pct Auto 0.6 % (0.0-0.4); Lymphocytes Absolute Auto 1.1 X10*3/uL (1.2-4.9); Lymphocytes Percent Auto 9.5 % (20-40); Mean Corpuscular HGB Conc 34.9 g/dl (31.0-36.0); Mean Corpuscular Hemoglobin 36.3 pg (27.0-33.0); Mean Corpuscular Volume 104.1 fL (80.0-98.0); Mean Platelet Volume 10.3 fL (9.4-12.4); Monocytes Percent Auto 8.3 % (2-11); Neutrophils Absolute Auto 9.4 x10*3/uL (2.0-8.3); Red Cell Distribution Width 14.2 % (11.0-16.0); White Blood Count 11.6 X10*3/uL (4.8-10.8)
[2021-05-20 13:18] LABS: INTERNATIONAL NORM RATIO 2.3 (0.9-1.1); Prothrombin Time 26.9 SEC (9.9-13.0)
[2021-05-20 13:21] LABS: Ammonia 75 umol/L (13-55)
[2021-05-20 13:25] LABS: Lactic Acid 1.8 mmol/L (0.5-2.0)
[2021-05-20 13:26] LABS: Ethanol < 10 mg/dL
[2021-05-20 13:27] LABS: COVID-19 Test Negative (Negative)
[2021-05-20] MEDS: Folic Acid 1 MG in 0.9 % Sodium Chloride 50 ML 100.4 MG IV (13:32)
[2021-05-20] MEDS: 0.9 % Sodium Chloride 1,000 ML 999 ML IVCONT ×2 (13:32→15:10)
[2021-05-20] MEDS: Thiamine HCL 200 MG in 0.9 % Sodium Chloride 100 ML 204 MG IV (13:34)
[2021-05-20 13:39] LABS: Lipase 15 U/L (8-78); Magnesium 1.1 mg/dL (1.6-2.6)
[2021-05-20 13:43] LABS: Alanine Aminotransferase 42 U/L (0-40); Albumin Level 3.1 g/dL (3.5-5.0); Alkaline Phosphatase 285 U/L (39-117); Anion Gap 13 (12-20); Aspartate Amino Transferase 173 U/L (5-37); Bilirubin Total 10.3 mg/dL (0.0-1.0); Blood Urea Nitrogen 9 mg/dL (9-16); Calcium 8.4 mg/dL (8.4-10.2); Carbon Dioxide 26 mmol/L (22-29); Chloride 99 mmol/L (96-108); Creatinine Clr Calc Pharmacy 121.4; Estimated Glomerular Filt Rate > 60; Glucose Random 131 mg/dL (60-115); Platelet Count 73 X10*3/uL (160-400); Potassium 3.7 mmol/L (3.3-5.1); Sodium 134 mmol/L (135-145)
--- NOTE | 2021-05-20 13:45 | PHA.MEDREC ---
Pharmacy Consult ? Medication Reconciliation Pharmacy has completed the medication reconciliation. Pt states he was discharged from [facility] earlier this year with about 9 medications but has not taken anything in over 6 months because he never went back for refills and it was too many meds to take. Arelis Duran, [facility]
[2021-05-20] MEDS: Multivitamin TABLET 1 TAB PO (14:00)
[2021-05-20] MEDS: Magnesium Sulfate/H2O 2 GM/50 ML PIGGYBACK IV (14:00)
[2021-05-20] MEDS: PHENobarbitaL sodium 130 MG/ML VIAL 272 MG IM (15:08)
[2021-05-20] MEDS: Ketorolac Tromethamine 30 MG/ML VIAL IVPUSH (15:09)
[2021-05-20] MEDS: iohexoL 350 MG/ML 100 ML INFUS..BTL IV (16:36)
[2021-05-20 16:57] LABS: Appearance Urine CLEAR; Color Urine YELLOW; Glucose Urine UA NEG (NEG); Leukocyte Esterase Urine NEG (NEG); Nitrite Urine NEG (NEG); PH 7.5 (5.0-8.0); UACC Culture Trigger NO; Urine Blood NEG (NEG); Urine Ketones 5 MG/DL (NEG); Urine Protein 1+ MG/DL (NEG-TRACE)
[2021-05-20] MEDS: cefTRIAXone sodium 1 GM in 0.9 % Sodium Chloride 50 ML IV (17:00)
[2021-05-20 17:09] LABS: Mucus Urine 2+ /LPF; RBC Urine 0-2 /HPF (0); Squamous Epithelial Cell Urine 1+ /LPF; WBC Urine 0-2 /HPF (0-4)
[2021-05-20 17:11] LABS: Amphetamine Screen Urine Not Detected (Not Detect); Barbiturates, Urine POSITIVE (Not Detect); Benzodiazepines Screen Urine Not Detected (Not Detect); Cannabinoid Screen Urine Not Detected (Not Detect); Cocaine Screen Urine POSITIVE (Not Detect); Fentanyl, urine Not Detected (Not Detect); Opiate Screen Urine Not Detected (Not Detect); Phencyclidine Screen Urine Not Detected (Not Detect)
--- NOTE | 2021-05-20 17:40 | PM.IMHP ---
History of Present Illness Date of Service: 05/20/21 Chief Complaint: Abdominal pain 41-year-old male with past medical history of ETOH abuse, cirrhosis presents to the ED with lower abdominal that is severe and is assicated with nausea, vomiting, decreased p.o. intake, fever of up to 103 at home, jaundice, and visual hallucinations for about 4 days now since he stopped drinking. Typically drinks about 10 nips daily and 4 beers, has beeen attempting to cut down. He tells me he has not drank in for days but told ED provider that he had beer yesterday. Work in ED includ WBC of 11.6, US of abdomen showed fatty liver and gall bladder sludge. A CT of abdoment shows sigmoid diverticulitis with with peridivericular abscess that measures 4.9 x 2.8 x 3.5 cm. There is an air fluid level internally. No free intraperitoneal air. Normal appendix. Discussed with Dr. Paz and advises IR guided drainage given elevated INR of 2.. During my interactio with patient he was lucid without overt signs of alcohol withdrawal but it should be of note that he has been treated with Phenobarbital. Additionally mejia positive cocaine and barbiuturates in the urine. Mag level is 1.1. Temperature here is 101 and has gone down. Review of Systems Review of Systems: + fever, jaudice, abdominal pain, nausea and vomitting, no blood in stool, Yes all other systems are reviewed and are negative [facility] Medical History (Updated 05/20/21 @ 17:55 by Keegan Jones MD) Acute alcoholic hepatitis Alcohol abuse Liver failure Pertinent family history: he repots family history of alcohol use Social History Household Members: Family and None Housing: House Do you presently have visiting nurse or other home services: Yes Alcohol intake: current Alcohol intake frequency: 3 or more drinks per day Alcohol type: beer, wine and hard liquor Patient Tobacco Use Status: Current everyday Tobacco user Tobacco use type: Cigarette Cigarette Packs Per Day: 1 Cigarettes Per Day: 20.0 Years Smoked: 18 Patient Interested in Nicotine Replacement: No Patient Given Instructions on How to Stop Smoking: No (pt dont want to stop) Use of substances other than those prescribed or required for medical reasons: Yes Substance Use Type: IV Drugs Substance Use Frequency: Socially Last Used Substance: Weeks (ago) Currently Displaying Signs/Symptoms of Drug Intoxication Withdrawal: No Have you been hit, kicked, punched, or otherwise hurt by someone within the past year? If so, by whom?: No Do you feel safe in your current relationship?: Yes Is there a partner from a previous relationship who is making you feel unsafe now?: No Are you made to feel afraid or neglected: No Advance Directives: No Advance Directives Information Provided: Yes Do you have thoughts of harming others: None Do you have a plan to hurt others: No Plan Recently lost weight without trying: No Eating poorly because of decreased appetite: No Nutrition Risks: No Nutritional Risk Poor oral hygiene: No Meds Allergies Allergy/AdvReac Type Severity Reaction Status Date / Time No Known Allergies Allergy Unverified 02/13/20 16:10 Active Medications: Current Medications Piperacillin Sod/Tazobactam (Sod 4.5 gm/ Sodium Chloride) 100 mls @ 200 mls/hr IV ONCE ONE Stop: 05/20/21 17:48 Phytonadione 10 mg/ Sodium (Chloride) 51 mls @ 51 mls/hr IV ONCE ONE Stop: 05/20/21 18:19 Medication (No Benzodiazepines) 1 each MISCELLANE DAILY [facility] Pharmacy Consult (Consult Rx Perform Med Rec) 1 each MISCELLANE ONCE PRN PRN Reason: Consult order Pharmacy Consult (Consult Rx Perform Med Rec) 1 each MISCELLANE ONCE PRN PRN Reason: Consult order Phenobarbital (Phenobarbital 15 Mg Tablet) 45 mg PO BID [facility]; Protocol Stop: 05/22/21 21:01 Phenobarbital (Phenobarbital 30 Mg Tablet) 30 mg PO BID HARJIT; Protocol Stop: 05/24/21 21:01 Phenobarbital (Phenobarbital 15 Mg Tablet) 15 mg PO DAILY [facility]; Protocol Stop: 05/26/21 09:01 Phenobarbital Sodium (Phenobarbital Sodium 130 Mg/Ml Vial) 204 mg IM ONCE ONE; Protocol Stop: 05/20/21 20:01 Home Medications Medication Instructions Recorded Confirmed Last Taken Type ibuprofen 200 mg tablet 400 mg PO Q6H PRN 05/20/21 05/20/21 Unknown History Physical Exam Vital Signs and Narrative: Vital Signs: Last Vital Signs Temp 99.3 F 05/20/21 16:52 Pulse 84 05/20/21 16:52 Resp 16 05/20/21 16:52 BP 110/60 05/20/21 16:52 Pulse Ox 99 05/20/21 16:52 BMI result Body Mass Index 20.3 Const: Other: Constitutional: Alert, in no distress, Mental Status: Oriented to person, place and time. Eyes: Pupils are equal, round and reactive to light. sclera icteris Ear, Nose and Throat: Oropharynx clear, mucous membranes moist. Ears and nose without eformities. Trachea midline. Respiratory: Clear to auscultation. No wheezing, rales or rhonchi. Cardiovascular: S1 S2 regular. No murmurs, rubs or gallops. Gastrointestinal: Abdomen soft, tender at lower abdomen more prominent in left lq, non-distended. Normal bowel sounds.? Neurologic: Cranial nerves II-XII grossly intact. No focal neurological deficits. Moves all extremities spontaneously.? Skin: No rashes or lesions.? Musculoskeletal: No cyanosis or clubbing. Mild tremors. Psychiatric: Normal mood and affect? Results Labs CBC and Chem 7: 05/21/21 05:21 05/21/21 05:21 Labs: Laboratory Results - last 24 hr 05/20/21 05/20/21 05/20/21 13:04 13:04 13:04 MCV 104.1 H MCH 36.3 H MCHC 34.9 RDW 14.2 Plt Count 73 L MPV 10.3 Immature Gran % (Auto) 0.6 H Neut % (Auto) 81.0 H Lymph % (Auto) 9.5 L [place] % (Auto) 8.3 Eos % (Auto) 0.2 Baso % (Auto) 0.4 Lymph # (Auto) 1.1 L [place] # (Auto) 1.0 Eos # (Auto) 0.0 Baso # (Auto) 0.1 Abs Immat Gran (auto) 0.07 H Absolute Neuts (auto) 9.4 H Absolute Nucleated RBC 0.000 Nucleated RBC % (auto) 0.0 PT 26.9 H INR 2.3 H APTT 40.0 H Anion Gap 13 Estim Creat Clear Calc 121.4 Estimated GFR > 60 Random Glucose 131 H Lactic Acid Calcium 8.4 Magnesium Total Bilirubin 10.3 H AST 173 H ALT 42 H Alkaline Phosphatase 285 H Ammonia Total Protein 8.0 Albumin 3.1 L Lipase Urine Color Urine Appearance Urine pH Ur Specific [place] Urine Protein Urine Glucose (UA) Urine Ketones Urine Blood Urine Nitrite Ur Leukocyte Esterase Urine RBC Urine WBC Ur Squamous Epith Cells Urine Bacteria Urine Mucus Urine Opiates Screen Urine Fentanyl Screen Ur Barbiturates Screen Ur Phencyclidine Scrn Ur Amphetamines Screen U Benzodiazepines Scrn Urine Cocaine Screen U Marijuana (THC) Screen Ethyl Alcohol COVID-19 (YESSI) COVID-19 Clin Com 05/20/21 05/20/21 05/20/21 13:04 13:04 13:04 MCV MCH MCHC RDW Plt Count MPV Immature Gran % (Auto) Neut % (Auto) Lymph % (Auto) [place] % (Auto) Eos % (Auto) Baso % (Auto) Lymph # (Auto) [place] # (Auto) Eos # (Auto) Baso # (Auto) Abs Immat Gran (auto) Absolute Neuts (auto) Absolute Nucleated RBC Nucleated RBC % (auto) PT INR APTT Anion Gap Estim Creat Clear Calc Estimated GFR Random Glucose Lactic Acid 1.8 Calcium Magnesium 1.1 L* Total Bilirubin AST ALT Alkaline Phosphatase Ammonia Total Protein Albumin Lipase 15 Urine Color Urine Appearance Urine pH Ur Specific [place] Urine Protein Urine Glucose (UA) Urine Ketones Urine Blood Urine Nitrite Ur Leukocyte Esterase Urine RBC Urine WBC Ur Squamous Epith Cells Urine Bacteria Urine Mucus Urine Opiates Screen Urine Fentanyl Screen Ur Barbiturates Screen Ur Phencyclidine Scrn Ur Amphetamines Screen U Benzodiazepines Scrn Urine Cocaine Screen U Marijuana (THC) Screen Ethyl Alcohol < 10 COVID-19 (YESSI) COVID-19 Clin Com 05/20/21 05/20/21 05/20/21 13:04 13:04 16:51 MCV MCH MCHC RDW Plt Count MPV Immature Gran % (Auto) Neut % (Auto) Lymph % (Auto) [place] % (Auto) Eos % (Auto) Baso % (Auto) Lymph # (Auto) [place] # (Auto) Eos # (Auto) Baso # (Auto) Abs Immat Gran (auto) Absolute Neuts (auto) Absolute Nucleated RBC Nucleated RBC % (auto) PT INR APTT Anion Gap Estim Creat Clear Calc Estimated GFR Random Glucose Lactic Acid Calcium Magnesium Total Bilirubin AST ALT Alkaline Phosphatase Ammonia 75 H Total Protein Albumin Lipase Urine Color YELLOW Urine Appearance CLEAR Urine pH 7.5 Ur Specific [place] 1.010 Urine Protein 1+ H Urine Glucose (UA) NEG Urine Ketones 5 Urine Blood NEG Urine Nitrite NEG Ur Leukocyte Esterase NEG Urine RBC 0-2 Urine WBC 0-2 Ur Squamous Epith Cells 1+ Urine Bacteria NONE Urine Mucus 2+ Urine Opiates Screen Urine Fentanyl Screen Ur Barbiturates Screen Ur Phencyclidine Scrn Ur Amphetamines Screen U Benzodiazepines Scrn Urine Cocaine Screen U Marijuana (THC) Screen Ethyl Alcohol COVID-19 (YESSI) Negative COVID-19 Clin Com See Note 05/20/21 16:51 MCV MCH MCHC RDW Plt Count MPV Immature Gran % (Auto) Neut % (Auto) Lymph % (Auto) [place] % (Auto) Eos % (Auto) Baso % (Auto) Lymph # (Auto) [place] # (Auto) Eos # (Auto) Baso # (Auto) Abs Immat Gran (auto) Absolute Neuts (auto) Absolute Nucleated RBC Nucleated RBC % (auto) PT INR APTT Anion Gap Estim Creat Clear Calc Estimated GFR Random Glucose Lactic Acid Calcium Magnesium Total Bilirubin AST ALT Alkaline Phosphatase [place] Total Protein Albumin Lipase Urine Color Urine Appearance Urine pH Ur Specific [place] Urine Protein Urine Glucose (UA) Urine Ketones Urine Blood Urine Nitrite Ur Leukocyte Esterase Urine RBC Urine WBC Ur Squamous Epith Cells Urine Bacteria Urine Mucus Urine Opiates Screen Not Detected Urine Fentanyl Screen Not Detected Ur Barbiturates Screen POSITIVE H Ur Phencyclidine Scrn Not Detected Ur Amphetamines Screen Not Detected U Benzodiazepines Scrn Not Detected Urine Cocaine Screen POSITIVE H U Marijuana (THC) Screen Not Detected Ethyl Alcohol COVID-19 (YESSI) COVID-19 Clin Com Imaging Radiologist's Impressions: Impressions Chest X-Ray 05/20/21 12:51 IMPRESSION: No acute disease. Abdomen Ultrasound 05/20/21 14:51 IMPRESSION: 1. Mild intrahepatic biliary ductal dilatation. Common duct mildly enlarged at 7 mm. No visible ductal calculus or ductal sludge. 2. Dependent sludge in gallbladder lumen. No visible calculus. Circumferential gallbladder wall thickening 4-6 mm with positive sonographic Gilmore's sign. No pericholecystic fluid. 3. Diffuse hepatic steatosis. Liver surface is smooth. Color Doppler shows hepatofugal flow in portal vein, away from the liver and towards the spleen. No right upper quadrant ascites. 4. Pancreas obscured by bowel gas. Abdomen/Pelvis CT 05/20/21 16:45 IMPRESSION: Sigmoid diverticulitis with peridiverticular abscess. No free air. Left hydroureteronephrosis, likely associated with the pelvic inflammation. No calculi. Hepatic steatosis. Prominent abdominal varices are seen. Patient has known diagnosis of cirrhosis. Mild gallbladder wall thickening again noted as seen on recent ultrasound. This is nonspecific in the setting of liver disease. Fleischner guidelines were followed. This critical result was discussed with MICK Pace MD by telephone at 05/20/2021 5:06 PM and it was ascertained that the content and urgency of the report was understood at the time of direct communication. Assessment and Plan (1) Diverticulitis of intestine with abscess: Status: Acute (2) Alcohol withdrawal: Status: Acute (3) Acute alcoholic hallucinosis: Status: Acute (4) Substance abuse: Status: Acute (5) Hypomagnesemia: Status: Acute 41 year old male with alcohol dependence here with abdominal pain and found to acute diverticulitis with abscess formation, and in alcohol withdrwal state 1/ Sepsis d/t diverticulitis with abscess, no severe sepsiss (elevated Bilirubin, elevated LFTs, elevated INR and low platlets all related to alcohol liver disease)7 2/Acute diverticulitis with absesss -IV Zoscyn -Surgery consult -Follow blood cultures 3/Acute alcolic hepatitis with hyerbilirubinemia -Avoid hepatoxins, GI eval -obviously needs to stop drinking -Care consult before discharge 4/Coagulopathy d/t liver failure-- INR 2.3, -Daily INR -IV vitamin daily x 3 days -GI consult 5/Alcohol withdrawal-- -Phenobarbital -Vitamamin B1, folate 6/HypOmagnesemia--from alcohol use -IV replacement and recheck tomorrow 7/Thrombocytospenia--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
[2021-05-20] MEDS: PHENobarbitaL sodium 130 MG/ML VIAL 204 MG IM ×2 (18:02→20:25)
[2021-05-20] MEDS: Phytonadione (Vit K1) 10 MG in 0.9 % Sodium Chloride 50 ML 51 MG IV (18:56)
[2021-05-20] MEDS: Dextrose 5 % and 0.9 % NaCl 1,000 ML 100 ML IVCONT (20:24)
[2021-05-20] MEDS: Folic Acid 1 MG TABLET PO (20:25)
[2021-05-20] MEDS: 0.9 % Sodium Chloride Flush 3 ML SYRINGE IVFLUSH (20:29)
[2021-05-20] MEDS: Piperacillin Sodium/Tazobactam 3.375 GM in 0.9 % Sodium Chloride 50 ML IV (23:35)
[2021-05-21] VITALS (9 sets, daily range): BP systolic 106–146; BP diastolic 52–65; PULSE 85–114; RESP 16–20; TEMP 36.8–38; O2SAT 95–99; BMI 20.8
[2021-05-21] MEDS: Dextrose 5 % and 0.9 % NaCl 1,000 ML 100 ML IVCONT (05:22)
[2021-05-21] MEDS: Piperacillin Sodium/Tazobactam 3.375 GM in 0.9 % Sodium Chloride 50 ML IV ×3 (05:25→18:39)
[2021-05-21 05:56] LABS: Mean Corpuscular Hemoglobin 36.1 pg (27.0-33.0); PLT CLUMP 1
[2021-05-21 05:58] LABS: Hematocrit 25.8 % (42.0-52.0); Hemoglobin 8.8 g/dl (14.0-18.0); Mean Corpuscular HGB Conc 34.1 g/dl (31.0-36.0); Mean Corpuscular Volume 105.7 fL (80.0-98.0); Mean Platelet Volume 10.4 fL (9.4-12.4); Red Blood Count 2.44 X10*6/uL (4.60-5.80); Red Cell Distribution Width 14.5 % (11.0-16.0)
[2021-05-21 06:06] LABS: Platelet Count 67 X10*3/uL (160-400); White Blood Count 11.2 X10*3/uL (4.8-10.8)
[2021-05-21 06:15] LABS: INTERNATIONAL NORM RATIO 2.4 (0.9-1.1)
[2021-05-21 06:30] LABS: Alanine Aminotransferase 33 U/L (0-40); Albumin Level 2.5 g/dL (3.5-5.0); Alkaline Phosphatase 226 U/L (39-117); Anion Gap 10 (12-20); Aspartate Amino Transferase 130 U/L (5-37); Bilirubin Total 7.3 mg/dL (0.0-1.0); Blood Urea Nitrogen 6 mg/dL (9-16); Calcium 7.2 mg/dL (8.4-10.2); Carbon Dioxide 22 mmol/L (22-29); Chloride 106 mmol/L (96-108); Creatinine Clr Calc Pharmacy 147.6; Estimated Glomerular Filt Rate > 60; Glucose Random 122 mg/dL (60-115); Potassium 3.2 mmol/L (3.3-5.1); Sodium 135 mmol/L (135-145); Total Protein 6.5 g/dL (6.5-8.0)
[2021-05-21] MEDS: Haloperidol Lactate 5 MG/ML VIAL 2.5 MG IM (07:58)
[2021-05-21] MEDS: hydrOXYzine HCL 50 MG/ML VIAL 25 MG IM (08:01)
--- NOTE | 2021-05-21 08:35 | PC.NURSE ---
Patient wanted to leave AMA, I followed down elevator to front lobby. Hospital security and nursing supervisors were able to talk him into going back to his room. Pt. was disoriented restless and shouting. ordered Haldol 2.5 mg and Atarax 25 mg. Doses given 7:45 and 7:55. Pt is sleeping as of now and periodically using the phone. Will continue to monitor.
--- NOTE | 2021-05-21 10:25 | P.CONGS_ITS ---
History of Present Illness Consult details Consult date: 05/21/21 Narrative: 41-year-old male with a long history of alcohol abuse and cirrhosis, who came to the emergency room last night because of abdominal pain, nausea, vomiting, and hallucinations. The patient currently does not seem to engage much and says that he is tired and sleepy so most of the history is from the H and P He reported to drink about 10 nips every day. He currently says that he has a pain has improved significantly. He was however reported to have fever up to 103 at home. He did answer some simple questions but stated that he was tired and not want to go into details of his history. Review of Systems Constitutional: Constitutional: Reports chills and Reports fever(s) Cardiovascular: Cardiovascular: Denies chest pain, Denies dyspnea and Denies d yspnea on exertion Respiratory: Respiratory: Denies cough, Denies dyspnea and Denies dyspnea on exertion Gastrointestinal: Gastrointestinal: Denies hematochezia, Denies change in bowel habits, Denies constipation and Denies diarrhea Genitourinary: Genitourinary: Denies hematuria and Denies difficulty urinating Musculoskeletal: Musculoskeletal: Denies back pain and Denies limited range of motion Neurologic: Denies focal weakness and Denies convulsions Psychiatric: Psychiatric: Denies depression and Denies mood swings PMFSH Past Medical History Medical History (Updated 05/20/21 @ 17:55 by Keegan Jones MD) Acute alcoholic hepatitis Alcohol abuse Liver failure Social History Social History Household Members: Family and None Housing: House Do you presently have visiting nurse or other home services: Yes Alcohol intake: current Alcohol intake frequency: 3 or more drinks per day Alcohol type: beer, wine and hard liquor Patient Tobacco Use Status: Current everyday Tobacco user Tobacco use type: Cigarette Cigarette Packs Per Day: 1 Cigarettes Per Day: 20.0 Years Smoked: 18 Patient Interested in Nicotine Replacement: No Patient Given Instructions on How to Stop Smoking: No (pt dont want to stop) Use of substances other than those prescribed or required for medical reasons: Yes Substance Use Type: IV Drugs Substance Use Frequency: Socially Last Used Substance: Weeks (ago) Currently Displaying Signs/Symptoms of Drug Intoxication Withdrawal: Yes Have you been hit, kicked, punched, or otherwise hurt by someone within the past year? If so, by whom?: No Do you feel safe in your current relationship?: Yes Is there a partner from a previous relationship who is making you feel unsafe now?: No Are you made to feel afraid or neglected: No Advance Directives: No Advance Directives Information Provided: Yes Do you have thoughts of harming others: None Do you have a plan to hurt others: No Plan Recently lost weight without trying: No Eating poorly because of decreased appetite: No Nutrition Risks: No Nutritional Risk Poor oral hygiene: No service: No Current occupational status: employed Meds Allergies Allergy/AdvReac Type Severity Reaction Status Date / Time No Known Allergies Allergy Unverified 02/13/20 16:10 Active Medications: Current Medications Folic Acid (Folic Acid 1 Mg Tablet) 1 mg PO DAILY [facility] Stop: 05/22/21 09:01 Last Admin: 05/20/21 20:25 Dose: 1 mg Documented by: Dextrose/Sodium Chloride (D5ns) 1,000 mls @ 100 mls/hr IVCONT .Q10H [facility] Last Infusion: 05/21/21 05:58 Dose: 100 mls/hr Documented by: Piperacillin Sod/Tazobactam (Sod 3.375 gm/ Sodium Chloride) 50 mls @ 100 mls/hr IV Q6H [facility] Last Infusion: 05/21/21 05:58 Dose: Infused Documented by: Phytonadione 10 mg/ Sodium (Chloride) 51 mls @ 51 mls/hr IV DAILY [facility] Stop: 05/23/21 09:59 Lactulose (Lactulose 20 Gm/30 Ml Solution) 30 gm PO TID [facility] Medication (No Benzodiazepines) 1 each MISCELLANE DAILY [facility] Morphine Sulfate (Morphine Sulfate 2 Mg/Ml Cartridge) 2 mg IVPUSH Q4H PRN; Protocol PRN Reason: Pain, Severe (Pain Scale 7-10) Pharmacy Consult (Consult Rx Perform Med Rec) 1 each MISCELLANE ONCE PRN PRN Reason: Consult order Pharmacy Consult (Consult Rx Perform Med Rec) 1 each MISCELLANE ONCE PRN PRN Reason: Consult order Phenobarbital (Phenobarbital 15 Mg Tablet) 45 mg PO BID [facility]; Protocol Stop: 05/22/21 21:01 Phenobarbital (Phenobarbital 30 Mg Tablet) 30 mg PO BID [facility]; Protocol Stop: 05/24/21 21:01 Phenobarbital (Phenobarbital 15 Mg Tablet) 15 mg PO DAILY [facility]; Protocol Stop: 05/26/21 09:01 Sodium Chloride (0.9 % Sodium Chloride Flush 3 Ml Syringe) 3 ml IVFLUSH QSHIFT [facility] Last Admin: 05/20/21 20:29 Dose: 3 ml Documented by: Thiamine HCl (Thiamine Hcl 100 Mg Tablet) 100 mg PO DAILY [facility] Stop: 05/23/21 09:01 Home Medications Medication Instructions Recorded Confirmed Last Taken Type ibuprofen 200 mg tablet 400 mg PO Q6H PRN 05/20/21 05/20/21 Unknown History Physical Exam Vital Signs: Vital Signs: Last Vital Signs Temp 98.9 F 05/21/21 04:00 Pulse 86 05/21/21 04:00 Resp 17 05/21/21 04:00 BP 106/52 L 05/21/21 04:00 Pulse Ox 96 05/21/21 04:00 BMI result Body Mass Index 20.8 Const: Other: Jaundiced General: comfortable and no acute distress Eyes: Sclerae: scleral abnormal (Jaundiced) Neck: Neck: Yes no lymphadenopathy Resp: Auscultation: clear to auscultation bilaterally Cardio: Rhythm: regular rhythm GI: Palpation (GI): Soft to palpation, nontender and no guarding Results Labs Result diagrams: 05/23/21 06:20 05/22/21 06:21 Labs: Abnormal lab results 05/20/21 05/20/21 05/20/21 Range/Units 13:04 13:04 13:04 WBC 11.6 H (4.8-10.8) X10*3/uL RBC 2.70 L (4.60-5.80) X10*6/uL Hgb 9.8 L (14.0-18.0) g/dl Hct 28.1 L (42.0-52.0) % MCV 104.1 H (80.0-98.0) fL MCH 36.3 H (27.0-33.0) pg Plt Count 73 L (160-400) X10*3/uL Immature Gran % (Auto) 0.6 H (0.0-0.4) % Neut % (Auto) 81.0 H (45-73) % Lymph % (Auto) 9.5 L (20-40) % Lymph # (Auto) 1.1 L (1.2-4.9) X10*3/uL Abs Immat Gran (auto) 0.07 H (0.00-0.03) X10*3/uL Absolute Neuts (auto) 9.4 H (2.0-8.3) x10*3/uL PT 26.9 H (9.9-13.0) SEC INR 2.3 H (0.9-1.1) APTT 40.0 H (24.1-38.0) SEC Sodium 134 L (135-145) mmol/L Potassium (3.3-5.1) mmol/L Anion Gap (12-20) BUN (9-16) mg/dL Random Glucose 131 H (60-115) mg/dL Calcium (8.4-10.2) mg/dL Magnesium (1.6-2.6) mg/dL Total Bilirubin 10.3 H (0.0-1.0) mg/dL Direct Bilirubin (0.0-0.5) mg/dL AST 173 H (5-37) U/L ALT 42 H (0-40) U/L Alkaline Phosphatase 285 H (39-117) U/L Ammonia (13-55) umol/L Albumin 3.1 L (3.5-5.0) g/dL Urine Protein (NEG-TRACE) MG/DL Ur Barbiturates Screen (Not Detect) Urine Cocaine Screen (Not Detect) 05/20/21 05/20/21 05/20/21 Range/Units 13:04 13:04 16:51 WBC (4.8-10.8) X10*3/uL RBC (4.60-5.80) X10*6/uL Hgb (14.0-18.0) g/dl Hct (42.0-52.0) % MCV (80.0-98.0) fL MCH (27.0-33.0) pg Plt Count (160-400) X10*3/uL Immature Gran % (Auto) (0.0-0.4) % Neut % (Auto) (45-73) % Lymph % (Auto) (20-40) % Lymph # (Auto) (1.2-4.9) X10*3/uL Abs Immat Gran (auto) (0.00-0.03) X10*3/uL Absolute Neuts (auto) (2.0-8.3) x10*3/uL PT (9.9-13.0) SEC INR (0.9-1.1) APTT (24.1-38.0) SEC Sodium (135-145) mmol/L Potassium (3.3-5.1) mmol/L Anion Gap (12-20) BUN (9-16) mg/dL Random Glucose (60-115) mg/dL Calcium (8.4-10.2) mg/dL Magnesium 1.1 L* (1.6-2.6) mg/dL Total Bilirubin (0.0-1.0) mg/dL Direct Bilirubin (0.0-0.5) mg/dL AST (5-37) U/L ALT (0-40) U/L Alkaline Phosphatase (39-117) U/L Ammonia 75 H (13-55) umol/L Albumin (3.5-5.0) g/dL Urine Protein 1+ H (NEG-TRACE) MG/DL Ur Barbiturates Screen (Not Detect) Urine Cocaine Screen (Not Detect) 05/20/21 05/21/21 05/21/21 Range/Units 16:51 05:21 05:21 WBC 11.2 H (4.8-10.8) X10*3/uL RBC 2.44 L (4.60-5.80) X10*6/uL Hgb 8.8 L (14.0-18.0) g/dl Hct 25.8 L (42.0-52.0) % MCV 105.7 H (80.0-98.0) fL MCH 36.1 H (27.0-33.0) pg Plt Count 67 L (160-400) X10*3/uL Immature Gran % (Auto) (0.0-0.4) % Neut % (Auto) (45-73) % Lymph % (Auto) (20-40) % Lymph # (Auto) (1.2-4.9) X10*3/uL Abs Immat Gran (auto) (0.00-0.03) X10*3/uL Absolute Neuts (auto) (2.0-8.3) x10*3/uL PT 28.0 H (9.9-13.0) SEC INR 2.4 H (0.9-1.1) APTT (24.1-38.0) SEC Sodium (135-145) mmol/L Potassium (3.3-5.1) mmol/L Anion Gap (12-20) BUN (9-16) mg/dL Random Glucose (60-115) mg/dL Calcium (8.4-10.2) mg/dL Magnesium (1.6-2.6) mg/dL Total Bilirubin (0.0-1.0) mg/dL Direct Bilirubin (0.0-0.5) mg/dL AST (5-37) U/L ALT (0-40) U/L Alkaline Phosphatase (39-117) U/L Ammonia (13-55) umol/L Albumin (3.5-5.0) g/dL Urine Protein (NEG-TRACE) MG/DL Ur Barbiturates Screen POSITIVE H (Not Detect) Urine Cocaine Screen POSITIVE H (Not Detect) 05/21/21 Range/Units 05:21 WBC (4.8-10.8) X10*3/uL RBC (4.60-5.80) X10*6/uL Hgb (14.0-18.0) g/dl Hct (42.0-52.0) % MCV (80.0-98.0) fL MCH (27.0-33.0) pg Plt Count (160-400) X10*3/uL Immature Gran % (Auto) (0.0-0.4) % Neut % (Auto) (45-73) % Lymph % (Auto) (20-40) % Lymph # (Auto) (1.2-4.9) X10*3/uL Abs Immat Gran (auto) (0.00-0.03) X10*3/uL Absolute Neuts (auto) (2.0-8.3) x10*3/uL PT (9.9-13.0) SEC INR (0.9-1.1) APTT (24.1-38.0) SEC Sodium (135-145) mmol/L Potassium 3.2 L (3.3-5.1) mmol/L Anion Gap 10 L (12-20) BUN 6 L (9-16) mg/dL Random Glucose 122 H (60-115) mg/dL Calcium 7.2 L D (8.4-10.2) mg/dL Magnesium (1.6-2.6) mg/dL Total Bilirubin 7.3 H (0.0-1.0) mg/dL Direct Bilirubin 4.0 H (0.0-0.5) mg/dL AST 130 H (5-37) U/L ALT (0-40) U/L Alkaline Phosphatase 226 H D (39-117) U/L Ammonia (13-55) umol/L Albumin 2.5 L (3.5-5.0) g/dL Urine Protein (NEG-TRACE) MG/DL Ur Barbiturates Screen (Not Detect) Urine Cocaine Screen (Not Detect) Short CBC 05/20/21 05/21/21 Range/Units 13:04 05:21 WBC 11.6 H 11.2 H (4.8-10.8) X10*3/uL Hgb 9.8 L 8.8 L (14.0-18.0) g/dl Hct 28.1 L 25.8 L (42.0-52.0) % Plt Count 73 L 67 L (160-400) X10*3/uL BMP 05/20/21 05/21/21 13:04 05:21 Sodium 134 L 135 Potassium 3.7 3.2 L Chloride 99 106 Carbon Dioxide 26 22 BUN 9 6 L Creatinine 0.77 0.65 Calcium 8.4 7.2 L D Liver Function 05/20/21 05/21/21 Range/Units 13:04 05:21 Total Bilirubin 10.3 H 7.3 H (0.0-1.0) mg/dL Direct Bilirubin 4.0 H (0.0-0.5) mg/dL AST 173 H 130 H (5-37) U/L ALT 42 H 33 (0-40) U/L Alkaline Phosphatase 285 H 226 H D (39-117) U/L Albumin 3.1 L 2.5 L (3.5-5.0) g/dL Urine 05/20/21 Range/Units 16:51 Urine Color YELLOW Urine Appearance CLEAR Urine pH 7.5 (5.0-8.0) Ur Specific [place] 1.010 (1.005-1.025) Urine Protein 1+ H (NEG-TRACE) MG/DL Urine Glucose (UA) NEG (NEG) MG/DL All other labs normal. Imaging Abdomen CT scan report/results: report reviewed and image reviewed CT scan - pelvis: report reviewed and image reviewed Assessment and Plan (1) Diverticulitis of intestine with abscess: Status: Acute His CAT scan shows a diverticular abscess measuring 4.9 x 2.8 x 3.5. However, he has multiple medical problems including alcohol abuse and cirrhosis. His bilirubin is 10.3 and his INR is 2.3. Management would be with a guided drainage of the abscess, although his coagulopathy should be corrected first. In the meantime, IV antibiotic treatment has been started. He currently has a benign exam otherwise. He also also being monitored for withdrawals because of his significant alcohol history. I will follow along closely while he is in the hospital. (2) Acute alcoholic hallucinosis: Status: Acute He has chronic liver disease as well as side from his acute alcohol hallucinosis. He is coagulopathic so this has to be corrected. He is being watched for withdrawal l symptoms as well. Procedures Date of Service Date of Service: 05/21/21
--- NOTE | 2021-05-21 10:27 | HO.PM.IMPN ---
Subjective Subjective Date of Service: 05/21/21 Interval History: Seen in f/u for diverticulitis with abscess, alcohol withdrawal and now hepatic encephalopathy...Patient was extremely agiated and confused this morning, not making any sense attempted to leave and security was called to the scenes, he could not be redirected or calm and was not in his right mind to make sound decison and therefore was not allowed to leave against medical advised. It required Haldol and Atarax IM to finally control him and he was able to take Lactulose also. I spoke to his girlfriend (Proxy) and would not come to pick him up because he was not in his right mind. Patient was evaluated multiple times until he finaly rested and fell asleep.. Review of Systems confusion, no feve Physical Exam Vital Signs: Vital Signs: Last Vital Signs Temp 98.9 F 05/21/21 04:00 Pulse 86 05/21/21 04:00 Resp 17 05/21/21 04:00 BP 106/52 L 05/21/21 04:00 Pulse Ox 96 05/21/21 04:00 BMI result Body Mass Index 20.8 Const: Other: General: oriented to self, confused on place and lack of undersdaning of his situation Resp: CTA bilateral eye, jaundice CVS: S1,S2,RRR GI: +BS, NT, no distention Skin: No rash Neuro: motor grossly intact Psych: confused Objective Data Active Medications Folic Acid (Folic Acid 1 Mg Tablet) 1 mg PO DAILY [facility] Stop: 05/22/21 09:01 Last Admin: 05/20/21 20:25 Dose: 1 mg Documented by: YVES Dextrose/Sodium Chloride (D5ns) 1,000 mls @ 100 mls/hr IVCONT .Q10H [facility] Last Infusion: 05/21/21 05:58 Dose: 100 mls/hr Documented by: YVSE Piperacillin Sod/Tazobactam (Sod 3.375 gm/ Sodium Chloride) 50 mls @ 100 mls/hr IV Q6H [facility] Last Infusion: 05/21/21 05:58 Dose: 0 mls/hr Documented by: YVES Phytonadione 10 mg/ Sodium (Chloride) 51 mls @ 51 mls/hr IV DAILY [facility] Stop: 05/23/21 09:59 Magnesium Sulfate (Magnesium Sulfate/H2o) 4 gm in 50 mls @ 150 mls/hr IV ONCE ONE Stop: 05/21/21 10:44 Lactulose (Lactulose 20 Gm/30 Ml Solution) 30 gm PO TID [facility] Medication (No Benzodiazepines) 1 each MISCELLANE DAILY [facility] Morphine Sulfate (Morphine Sulfate 2 Mg/Ml Cartridge) 2 mg IVPUSH Q4H PRN; Protocol PRN Reason: Pain, Severe (Pain Scale 7-10) Pharmacy Consult (Consult Rx Perform Med Rec) 1 each MISCELLANE ONCE PRN PRN Reason: Consult order Pharmacy Consult (Consult Rx Perform Med Rec) 1 each MISCELLANE ONCE PRN PRN Reason: Consult order Phenobarbital (Phenobarbital 15 Mg Tablet) 45 mg PO BID [facility]; Protocol Stop: 05/22/21 21:01 Phenobarbital (Phenobarbital 30 Mg Tablet) 30 mg PO BID [facility]; Protocol Stop: 05/24/21 21:01 Phenobarbital (Phenobarbital 15 Mg Tablet) 15 mg PO DAILY [facility]; Protocol Stop: 05/26/21 09:01 Sodium Chloride (0.9 % Sodium Chloride Flush 3 Ml Syringe) 3 ml IVFLUSH QSHIFT [facility] Last Admin: 05/20/21 20:29 Dose: 3 ml Documented by: YVES Thiamine HCl (Thiamine Hcl 100 Mg Tablet) 100 mg PO DAILY [facility] Stop: 05/23/21 09:01 Labs CBC & Chem 7: 05/21/21 05:21 05/21/21 05:21 Labs: Laboratory Results - last 24 hr 05/20/21 05/20/21 05/20/21 13:04 13:04 13:04 MCV 104.1 H MCH 36.3 H MCHC 34.9 RDW 14.2 Plt Count 73 L MPV 10.3 Immature Gran % (Auto) 0.6 H Neut % (Auto) 81.0 H Lymph % (Auto) 9.5 L [place] % (Auto) 8.3 Eos % (Auto) 0.2 Baso % (Auto) 0.4 Lymph # (Auto) 1.1 L [place] # (Auto) 1.0 Eos # (Auto) 0.0 Baso # (Auto) 0.1 Abs Immat Gran (auto) 0.07 H Absolute Neuts (auto) 9.4 H Absolute Nucleated RBC 0.000 Nucleated RBC % (auto) 0.0 PT 26.9 H INR 2.3 H APTT 40.0 H Anion Gap 13 Estim Creat Clear Calc 121.4 Estimated GFR > 60 Random Glucose 131 H Lactic Acid Calcium 8.4 Magnesium Total Bilirubin 10.3 H Direct Bilirubin AST 173 H ALT 42 H Alkaline Phosphatase 285 H Ammonia Total Protein 8.0 Albumin 3.1 L Lipase Urine Color Urine Appearance Urine pH Ur Specific [place] Urine Protein Urine Glucose (UA) Urine Ketones Urine Blood Urine Nitrite Ur Leukocyte Esterase Urine RBC Urine WBC Ur Squamous Epith Cells Urine Bacteria Urine Mucus Urine Opiates Screen Urine Fentanyl Screen Ur Barbiturates Screen Ur Phencyclidine Scrn Ur Amphetamines Screen U Benzodiazepines Scrn Urine Cocaine Screen U Marijuana (THC) Screen Ethyl Alcohol COVID-19 ([facility]ESSI) COVID-19 [employer] 05/20/21 05/20/21 05/20/21 13:04 13:04 13:04 MCV MCH MCHC RDW Plt Count MPV Immature Gran % (Auto) Neut % (Auto) Lymph % (Auto) [place] % (Auto) Eos % (Auto) Baso % (Auto) Lymph # (Auto) [place] # (Auto) Eos # (Auto) Baso # (Auto) Abs Immat Gran (auto) Absolute Neuts (auto) Absolute Nucleated RBC Nucleated RBC % (auto) PT INR APTT Anion Gap Estim Creat Clear Calc Estimated GFR Random Glucose Lactic Acid 1.8 Calcium Magnesium 1.1 L* Total Bilirubin Direct Bilirubin AST ALT Alkaline Phosphatase Ammonia Total Protein Albumin Lipase 15 Urine Color Urine Appearance Urine pH Ur Specific [place] Urine Protein Urine Glucose (UA) Urine Ketones Urine Blood Urine Nitrite Ur Leukocyte Esterase Urine RBC Urine WBC Ur Squamous Epith Cells Urine Bacteria Urine Mucus Urine Opiates Screen Urine Fentanyl Screen Ur Barbiturates Screen Ur Phencyclidine Scrn Ur Amphetamines Screen U Benzodiazepines Scrn Urine Cocaine Screen U Marijuana (THC) Screen Ethyl Alcohol < 10 COVID-19 (YESSI) COVID-19 [facility] Com 05/20/21 05/20/21 05/20/21 13:04 13:04 16:51 MCV MCH MCHC RDW Plt Count MPV Immature Gran % (Auto) Neut % (Auto) Lymph % (Auto) [place] % (Auto) Eos % (Auto) Baso % (Auto) Lymph # (Auto) [place] # (Auto) Eos # (Auto) Baso # (Auto) Abs Immat Gran (auto) Absolute Neuts (auto) Absolute Nucleated RBC Nucleated RBC % (auto) PT INR APTT Anion Gap Estim Creat Clear Calc Estimated GFR Random Glucose Lactic Acid Calcium Magnesium Total Bilirubin Direct Bilirubin AST ALT Alkaline Phosphatase Ammonia 75 H Total Protein Albumin Lipase Urine Color YELLOW Urine Appearance CLEAR Urine pH 7.5 Ur Specific [place] 1.010 Urine Protein 1+ H Urine Glucose (UA) NEG Urine Ketones 5 Urine Blood NEG Urine Nitrite NEG Ur Leukocyte Esterase NEG Urine RBC 0-2 Urine WBC 0-2 Ur Squamous Epith Cells 1+ Urine Bacteria NONE Urine Mucus 2+ Urine Opiates Screen Urine Fentanyl Screen Ur Barbiturates Screen Ur Phencyclidine Scrn Ur Amphetamines Screen U Benzodiazepines Scrn Urine Cocaine Screen U Marijuana (THC) Screen Ethyl Alcohol COVID-19 (YESSI) Negative COVID-19 Clin Com See Note 05/20/21 05/21/21 05/21/21 16:51 05:21 05:21 MCV 105.7 H MCH 36.1 H MCHC 34.1 RDW 14.5 Plt Count 67 L MPV 10.4 Immature Gran % (Auto) Neut % (Auto) Lymph % (Auto) [place] % (Auto) Eos % (Auto) Baso % (Auto) Lymph # (Auto) [place] # (Auto) Eos # (Auto) Baso # (Auto) Abs Immat Gran (auto) Absolute Neuts (auto) Absolute Nucleated RBC 0.000 Nucleated RBC % (auto) 0.0 PT 28.0 H INR 2.4 H APTT Anion Gap Estim Creat Clear Calc Estimated GFR Random Glucose Lactic Acid Calcium Magnesium Total Bilirubin Direct Bilirubin AST ALT Alkaline Phosphatase Ammonia Total Protein Albumin Lipase Urine Color Urine Appearance Urine pH Ur Specific [place] Urine Protein Urine Glucose (UA) Urine Ketones Urine Blood Urine Nitrite Ur Leukocyte Esterase Urine RBC Urine WBC Ur Squamous Epith Cells Urine Bacteria Urine Mucus Urine Opiates Screen Not Detected Urine Fentanyl Screen Not Detected Ur Barbiturates Screen POSITIVE H Ur Phencyclidine Scrn Not Detected Ur Amphetamines Screen Not Detected U Benzodiazepines Scrn Not Detected Urine Cocaine Screen POSITIVE H U Marijuana (THC) Screen Not Detected Ethyl Alcohol COVID-19 (YESSI) COVID-19 Clin Com 05/21/21 05:21 MCV MCH MCHC RDW Plt Count MPV Immature Gran % (Auto) Neut % (Auto) Lymph % (Auto) [place] % (Auto) Eos % (Auto) Baso % (Auto) Lymph # (Auto) [place] # (Auto) Eos # (Auto) Baso # (Auto) Abs Immat Gran (auto) Absolute Neuts (auto) Absolute Nucleated RBC Nucleated RBC % (auto) PT INR APTT Anion Gap 10 L Estim Creat Clear Calc 147.6 Estimated GFR > 60 Random Glucose 122 H Lactic Acid Calcium 7.2 L D Magnesium Total Bilirubin 7.3 H Direct Bilirubin 4.0 H AST 130 H ALT 33 Alkaline Phosphatase 226 H D Ammonia Total Protein 6.5 Albumin 2.5 L Lipase Urine Color Urine Appearance Urine pH Ur Specific [place] Urine Protein Urine Glucose (UA) Urine Ketones Urine Blood Urine Nitrite Ur Leukocyte Esterase Urine RBC Urine WBC Ur Squamous Epith Cells Urine Bacteria Urine Mucus Urine Opiates Screen Urine Fentanyl Screen Ur Barbiturates Screen Ur Phencyclidine Scrn Ur Amphetamines Screen U Benzodiazepines Scrn Urine Cocaine Screen U Marijuana (THC) Screen Ethyl Alcohol COVID-19 ([facility]ESSI) COVID-19 Clin Com Assessment and Plan (1) Hypomagnesemia: Status: Acute (2) Substance abuse: Status: Acute (3) Acute alcoholic hepatitis: Status: Acute (4) Alcohol withdrawal: Status: Acute (5) Diverticulitis of intestine with abscess: Status: Acute (6) Acute alcoholic hallucinosis: Status: Acute Assessment and Plan: 41 year old male with alcohol dependence here with abdominal pain and found to acute diverticulitis with abscess formation, and in alcohol withdrwal state 1/ Sepsis d/t diverticulitis with abscess, no severe sepsiss (elevated Bilirubin, elevated LFTs, elevated INR and low platlets all related to alcohol liver disease)7 2/Acute diverticulitis with absesss -IV Zoscyn d2 -Surgery consult -ID consult -Follow blood cultures 3/Acute alcolic hepatitis with hyerbilirubinemia--bili is coming down -Avoid hepatoxins, GI eval -obviously needs to stop drinking -Care consult before discharge 4/Coagulopathy d/t liver failure-- INR 2.4 today essentially unchanged -Daily INR -Oral Vitamin K -GI consult 5/Alcohol withdrawal with confusion -Phenobarbital -Vitamamin B1, folate 6/HypOmagnesemia--from alcohol use. 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 He was assess multiple time following this and was ok DVT prophy: No meds given high INR full code Quality Stroke Does the patient have a stroke diagnosis?: No VTE Prior VTE?: No VTE Risk Level:: Medical - low VTE Device Contraindication: Treatment Not Indicated VTE Drug Contraindication: Treatment Not Indicated
[2021-05-21] MEDS: Lactulose 20 GM/30 ML SOLUTION 30 GM PO ×2 (10:48→14:57)
[2021-05-21] MEDS: PHENobarbitaL 15 MG TABLET 45 MG PO ×2 (10:48→21:33)
[2021-05-21] MEDS: Thiamine HCL 100 MG TABLET PO (10:48)
[2021-05-21] MEDS: Folic Acid 1 MG TABLET PO (10:48)
[2021-05-21] MEDS: 0.9 % Sodium Chloride Flush 3 ML SYRINGE IVFLUSH (10:49)
--- NOTE | 2021-05-21 10:55 | P.CNGI_ITS ---
History of Present Illness Data of Consult Service Date: 05/21/21 Requesting physician: Keegan Deal Primary Care Provider: Unknown Physician HPI Reason for consult: Alcoholic hepatitis and diverticulitis 41-year-old male presented [place] [facility] [place] with abdominal pain, Jaundice, nausea vomiting and fever: ? 41-year-old male with past medical history of ETOH abuse, cirrhosis, pres enting to the ED complaining of upper abdominal, nausea, vomiting, decreased p.o. intake, jaundice, and visual hallucinations worsening x couple days.? Reports drinks about 8 nips daily, has been trying to cut back, drank 3 beers [place] and 1 beer yesterday, and had visual hallucinations of to people trying to steal something in his yard yesterday and called breeding technician however nobody was there.? Also reports auditory hallucinations.? Denies known history of alcohol withdrawal seizures.? Also reports occasional cocaine use.? Reports fever of 103 yesterday.? Denies CP, SOB, pedal edema Labs showed: Macrocytic anemia, thrombocytopenia, normal lipase, elevated ammonia of 75, INR of 2.4. LFTs showed bilirubin 10.3, AST 173, ALT 42 and alkaline phosphatase 285. Urine drug screen was positive for barbiturates and cocaine. Repeat labs this morning showed improvement in LFTs IMAGING STUDIES: 05/20/[address] SCAN SHOWED: Sigmoid diverticulitis with peridiverticular abscess. No free air. Left hydroureteronephrosis, likely associated with the pelvic inflammation. No calculi. Hepatic steatosis. Prominent abdominal varices are seen. Patient has known diagnosis of cirrhosis. Mild gallbladder wall thickening again noted as seen on recent ultrasound. This is nonspecific in the setting of liver disease. Review of Systems Constitutional: Constitutional: Reports fever(s), Denies headache(s) and Denies weight loss Eyes: Eyes: Denies eye discharge and Denies irritation ENT: Reports Normal hearing present, Denies dysphagia, Denies dizziness and Denies headache(s) Cardiovascular: Cardiovascular: Denies chest pain, Denies leg edema and Denies dyspnea on exertion Respiratory: Respiratory: Denies cough and Denies dyspnea on exertion Gastrointestinal: Gastrointestinal: Reports abdominal pain, Denies change in bowel habits, Reports constipation, Denies dysphagia, Denies heartburn, Reports nausea and Reports vomiting Genitourinary: Genitourinary: Denies dysuria Musculoskeletal: Musculoskeletal: Denies back pain and Denies arthralgias Integumentary/Breasts: Skin/Breast: Reports change in pigmentation (Jaundice), Denies pruritus, Denies rash and Denies jaundice Neurologic: Reports Normal hearing present, Denies Abnormal speech present, Reports confusion, Denies dizziness, Denies headache(s) and Denies seizure-like activity Psychiatric: Psychiatric: Denies anxiety, Reports confusion, Denies depression and Denies panic attacks Endocrine: Endocrine: Denies cold intolerance, Denies flushing and Denies heat intolerance PMFSH Past Medical History Medical History (Updated 06/01/21 @ 00:02 by Apolinar Dillon) Acute alcoholic hepatitis Alcohol abuse Liver failure Social History Social History Household Members: Family and None Housing: House Do you presently have visiting nurse or other home services: Yes Alcohol intake: current Alcohol intake frequency: 3 or more drinks per day Alcohol type: beer, wine and hard liquor Patient Tobacco Use Status: Current everyday Tobacco user Tobacco use type: Cigarette Cigarette Packs Per Day: 1 Cigarettes Per Day: 20.0 Years Smoked: 18 Substance Use Type: IV Drugs service: No Current occupational status: employed Meds Allergies Allergy/AdvReac Type Severity Reaction Status Date / Time No Known Allergies Allergy Unverified 02/13/20 16:10 Active Medications: Current Medications Folic Acid (Folic Acid 1 Mg Tablet) 1 mg PO DAILY [facility] Stop: 05/22/21 09:01 Last Admin: 05/21/21 10:48 Dose: 1 mg Documented by: Dextrose/Sodium Chloride (D5ns) 1,000 mls @ 100 mls/hr IVCONT .Q10H [facility] Last Infusion: 05/21/21 05:58 Dose: 100 mls/hr Documented by: Piperacillin Sod/Tazobactam (Sod 3.375 gm/ Sodium Chloride) 50 mls @ 100 mls/hr IV Q6H [facility] Last Infusion: 05/21/21 05:58 Dose: Infused Documented by: Phytonadione 10 mg/ Sodium (Chloride) 51 mls @ 51 mls/hr IV DAILY [facility] Stop: 05/23/21 09:59 Magnesium Sulfate (Magnesium Sulfate/H2o) 2 gm in 50 mls @ 25 mls/hr IV Q2H [facility] Stop: 05/21/21 14:44 Lactulose (Lactulose 20 Gm/30 Ml Solution) 30 gm PO TID [facility] Last Admin: 05/21/21 10:48 Dose: 30 gm Documented by: Medication (No Benzodiazepines) 1 each MISCELLANE DAILY [facility] Morphine Sulfate (Morphine Sulfate 2 Mg/Ml Cartridge) 2 mg IVPUSH Q4H PRN; Protocol PRN Reason: Pain, Severe (Pain Scale 7-10) Pharmacy Consult (Consult Rx Perform Med Rec) 1 each MISCELLANE ONCE PRN PRN Reason: Consult order Pharmacy Consult (Consult Rx Perform Med Rec) 1 each MISCELLANE ONCE PRN PRN Reason: Consult order Phenobarbital (Phenobarbital 15 Mg Tablet) 45 mg PO BID [facility]; Protocol Stop: 05/22/21 21:01 Last Admin: 05/21/21 10:48 Dose: 45 mg Documented by: Phenobarbital (Phenobarbital 30 Mg Tablet) 30 mg PO BID [facility]; Protocol Stop: 05/24/21 21:01 Phenobarbital (Phenobarbital 15 Mg Tablet) 15 mg PO DAILY [facility]; Protocol Stop: 05/26/21 09:01 Sodium Chloride (0.9 % Sodium Chloride Flush 3 Ml Syringe) 3 ml IVFLUSH QSHIFT [facility] Last Admin: 05/21/21 10:49 Dose: 3 ml Documented by: Thiamine HCl (Thiamine Hcl 100 Mg Tablet) 100 mg PO DAILY [facility] Stop: 05/23/21 09:01 Last Admin: 05/21/21 10:48 Dose: 100 mg Documented by: Home Medications Medication Instructions Recorded Confirmed Last Taken Type ibuprofen 200 mg tablet 400 mg PO Q6H PRN 05/20/21 05/20/21 Unknown History Physical Exam Vital Signs: Vital Signs: Last Vital Signs Temp 98.9 F 05/21/21 04:00 Pulse 86 05/21/21 04:00 Resp 17 05/21/21 04:00 BP 106/52 L 05/21/21 04:00 Pulse Ox 96 05/21/21 04:00 BMI result Body Mass Index 20.8 Const: General: confusion, ill appearing and lethargic Nutritional Appearance: average body habitus Orientation/consciousness: patient oriented x3, confusion and lethargic Limitations: altered mental status HENMT: Head: Yes normal to inspection Ears: hearing grossly normal bilaterally Mouth: Normal oral and palatal mucosa present Eyes: Sclerae: scleral abnormal (Jaundice) Pupils: Equal, round and r eactive pupils present Neck: Neck: Yes normal visual inspection Chest: Chest palpation & inspection: normal inspection of the chest Resp: Effort & Inspection: normal respiratory effort Auscultation: clear to auscultation bilaterally Cardio: Palpation: normal PMI Rate: regular rate Rhythm: regular rhythm Heart sounds: S1 normal heart sound present, S2 normal heart sound present and no murmurs GI: Palpation (GI): Soft to palpation and No hepatosplenomegaly present Auscultation: normal bowel sounds Rectal Exam - Male: Yes deferred Skin: General skin exam: spider nevi (Multiple spider angiomata on anterior chest) Neuro: General: patient oriented x3, gait normal, moves all extremities and confusion Cranial nerves: Yes Equal, round and reactive pupils present and Yes Normal hearing present Speech: No Abnormal speech present Psych: Appearance: grossly normal Mental Status: mental status grossly normal Results Labs CBC & Chem 7: 05/24/21 05:28 05/24/21 05:28 Labs: Short CBC 05/20/21 05/21/21 Range/Units 13:04 05:21 WBC 11.6 H 11.2 H (4.8-10.8) X10*3/uL Hgb 9.8 L 8.8 L (14.0-18.0) g/dl Hct 28.1 L 25.8 L (42.0-52.0) % Plt Count 73 L 67 L (160-400) X10*3/uL BMP 05/20/21 05/21/21 13:04 05:21 Sodium 134 L 135 Potassium 3.7 3.2 L Chloride 99 106 Carbon Dioxide 26 22 BUN 9 6 L Creatinine 0.77 0.65 Calcium 8.4 7.2 L D Liver Function 05/20/21 05/21/21 Range/Units 13:04 05:21 Total Bilirubin 10.3 H 7.3 H (0.0-1.0) mg/dL Direct Bilirubin 4.0 H (0.0-0.5) mg/dL AST 173 H 130 H (5-37) U/L ALT 42 H 33 (0-40) U/L Alkaline Phosphatase 285 H 226 H D (39-117) U/L Albumin 3.1 L 2.5 L (3.5-5.0) g/dL Urine 05/20/21 Range/Units 16:51 Urine Color YELLOW Urine Appearance CLEAR Urine pH 7.5 (5.0-8.0) Ur Specific [place] 1.010 (1.005-1.025) Urine Protein 1+ H (NEG-TRACE) MG/DL Urine Glucose (UA) NEG (NEG) MG/DL Assessment and Plan (1) Acute alcoholic hepatitis: Status: Acute (2) Diverticulitis of intestine with abscess: Status: Acute Plan 41 YM with hx of ETOH abuse stopped on his own a few days ago followed by visual and auditory hallucinations admitted with fever, abdominal pain, nausea and vomiting due to diverticular abscess. LFTS are improving. Labs showed: Macrocytic anemia, thrombocytopenia, normal lipase, elevated ammonia of 75, INR of 2.4. LFTs showed bilirubin 10.3, AST 173, ALT 42 and alkaline phosphatase 285. Urine drug screen was positive for barbiturates and cocaine. Repeat labs this morning showed improvement in LFTs ABDOMINAL CT SCAN SHOWED: Sigmoid diverticulitis with peridiverticular abscess. Left hydroureteronephrosis, likely associated with the pelvic inflammation. No calculi. Hepatic steatosis. Prominent abdominal varices are seen. Patient has known diagnosis of cirrhosis. Mild gallbladder wall thickening again noted as seen on recent ultrasound. This is nonspecific in the setting of liver disease. RECOMMENDATIONS: 1. Continue CIWA protocol for ETOH withdrawl 2. Check hepatitis serologies with am labs and daily LFTs 3. PO lactulose for hepatic encephalopathy 4. Agree with correction of coagulopathy with Vitamin K 5. Percutaneus drainage of diverticular abscess by IR once coagulopathy is corrected. 6. He will need ETOH rehab after acute medical issues and diverticular abscess has resolved. Procedures Date of Service Date of Service: 05/21/21
[2021-05-21] MEDS: Phytonadione (Vit K1) 10 MG in 0.9 % Sodium Chloride 50 ML 51 MG IV (11:22)
[2021-05-21] MEDS: Magnesium Sulfate/H2O 2 GM/50 ML PIGGYBACK IV (12:44)
--- NOTE | 2021-05-21 15:32 | MHC.CM.PN ---
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 REFERRAL TO THE CARE TEAM INIATED AND THEY WILL FOLLOW HIM AND GIVE RECOMENDATIONS TRANSPORTATION FAMIUY OR FRIENDS
[2021-05-22] VITALS (10 sets, daily range): BP systolic 112–130; BP diastolic 56–74; PULSE 86–108; RESP 17–19; TEMP 36.8–39.4; O2SAT 96–98
[2021-05-22] MEDS: Piperacillin Sodium/Tazobactam 3.375 GM in 0.9 % Sodium Chloride 50 ML IV ×4 (00:17→18:28)
[2021-05-22] MEDS: Dextrose 5 % and 0.9 % NaCl 1,000 ML 100 ML IVCONT ×3 (01:02→20:48)
[2021-05-22] MEDS: Morphine Sulfate 2 MG/ML CARTRIDGE IVPUSH ×3 (04:47→16:05)
[2021-05-22 07:14] LABS: Hematocrit 26.2 % (42.0-52.0); Hemoglobin 8.8 g/dl (14.0-18.0); Mean Corpuscular HGB Conc 33.6 g/dl (31.0-36.0); Mean Corpuscular Hemoglobin 36.1 pg (27.0-33.0); Mean Corpuscular Volume 107.4 fL (80.0-98.0); NRBC Pct Auto 0.2 /100WBC (0.0-0.2); PLT CLUMP 1; Red Blood Count 2.44 X10*6/uL (4.60-5.80); Red Cell Distribution Width 14.6 % (11.0-16.0)
[2021-05-22 07:16] LABS: Mean Platelet Volume 10.3 fL (9.4-12.4)
[2021-05-22 07:25] LABS: INTERNATIONAL NORM RATIO 2.6 (0.9-1.1); Prothrombin Time 30.1 SEC (9.9-13.0)
[2021-05-22 07:30] LABS: Platelet Count 71 X10*3/uL (160-400); White Blood Count 9.9 X10*3/uL (4.8-10.8)
[2021-05-22 07:42] LABS: Anion Gap 10 (12-20); Blood Urea Nitrogen 6 mg/dL (9-16); Calcium 7.1 mg/dL (8.4-10.2); Carbon Dioxide 22 mmol/L (22-29); Chloride 107 mmol/L (96-108); Creatinine Clr Calc Pharmacy 135.1; Estimated Glomerular Filt Rate > 60; Glucose Random 115 mg/dL (60-115); Potassium 2.9 mmol/L (3.3-5.1); Sodium 136 mmol/L (135-145)
[2021-05-22] MEDS: Lactulose 20 GM/30 ML SOLUTION 30 GM PO ×3 (10:02→20:48)
[2021-05-22] MEDS: PHENobarbitaL 15 MG TABLET 45 MG PO ×2 (10:03→20:48)
[2021-05-22] MEDS: Folic Acid 1 MG TABLET PO (10:03)
[2021-05-22] MEDS: Thiamine HCL 100 MG TABLET PO (10:03)
[2021-05-22] MEDS: Phytonadione (Vit K1) 10 MG in 0.9 % Sodium Chloride 50 ML 51 MG IV (10:04)
--- NOTE | 2021-05-22 10:51 | P.PNGS_ITS ---
Subjective Subjective Date of Service: 05/22/21 Interval history: Says he feels well Denies abdominal pain Asking when he can go home Physical Exam Vital Signs: Vital Signs: Last Vital Signs Temp 99.4 F 05/22/21 07:59 Pulse 86 05/22/21 07:59 Resp 18 05/22/21 10:03 BP 113/65 05/22/21 07:59 Pulse Ox 96 05/22/21 07:59 BMI result Body Mass Index 20.8 Const: Other: Looks anxious General: no acute distress Resp: Effort & Inspection: normal respiratory effort Cardio: Rate: regular rate GI: Palpation (GI): Soft to palpation, not firm, nontender and no guarding Objective Data Active Medications Dextrose/Sodium Chloride (D5ns) 1,000 mls @ 100 mls/hr IVCONT .Q10H [facility] Last Admin: 05/22/21 10:17 Dose: Not Given Documented by: COTEMA Non-Admin Reason: IV Running Piperacillin Sod/Tazobactam (Sod 3.375 gm/ Sodium Chloride) 50 mls @ 100 mls/hr IV Q6H [facility] Last Infusion: 05/22/21 07:32 Dose: 0 mls/hr Documented by: COTEMA Phytonadione 10 mg/ Sodium (Chloride) 51 mls @ 51 mls/hr IV DAILY [facility] Stop: 05/23/21 09:59 Last Admin: 05/22/21 10:04 Dose: 51 mls/hr Documented by: COTEMA Lactulose (Lactulose 20 Gm/30 Ml Solution) 30 gm PO TID [facility] Last Admin: 05/22/21 10:02 Dose: 30 gm Documented by: COTEMA Medication (No Benzodiazepines) 1 each MISCELLANE DAILY [facility] Morphine Sulfate (Morphine Sulfate 2 Mg/Ml Cartridge) 2 mg IVPUSH Q4H PRN; Protocol PRN Reason: Pain, Severe (Pain Scale 7-10) Last Admin: 05/22/21 10:03 Dose: 2 mg Documented by: COTEMA Pharmacy Consult (Consult Rx Perform Med Rec) 1 each MISCELLANE ONCE PRN PRN Reason: Consult order Pharmacy Consult (Consult Rx Perform Med Rec) 1 each MISCELLANE ONCE PRN PRN Reason: Consult order Phenobarbital (Phenobarbital 15 Mg Tablet) 45 mg PO BID [facility]; Protocol Stop: 05/22/21 21:01 Last Admin: 05/22/21 10:03 Dose: 45 mg Documented by: GEORGE Phenobarbital (Phenobarbital 30 Mg Tablet) 30 mg PO BID [facility]; Protocol Stop: 05/24/21 21:01 Phenobarbital (Phenobarbital 15 Mg Tablet) 15 mg PO DAILY [facility]; Protocol Stop: 05/26/21 09:01 Sodium Chloride (0.9 % Sodium Chloride Flush 3 Ml Syringe) 3 ml IVFLUSH QSHIFT [facility] Last Admin: 05/22/21 07:32 Dose: Not Given Documented by: GEORGE Non-Admin Reason: IV Running Thiamine HCl (Thiamine Hcl 100 Mg Tablet) 100 mg PO DAILY [facility] Stop: 05/23/21 09:01 Last Admin: 05/22/21 10:03 Dose: 100 mg Documented by: GEORGE Labs CBC & Chem 7: 05/22/21 06:21 05/22/21 06:21 Labs: Laboratory Results - last 24 hr 05/22/21 05/22/21 05/22/21 06:21 06:21 06:22 MCV 107.4 H MCH 36.1 H MCHC 33.6 RDW 14.6 Plt Count 71 L MPV 10.3 Absolute Nucleated RBC 0.020 H Nucleated RBC % (auto) 0.2 PT 30.1 H INR 2.6 H Anion Gap 10 L Estim Creat Clear Calc 135.1 Estimated GFR > 60 Random Glucose 115 Calcium 7.1 L Microbiology Microbiology Results: Microbiology 05/20/21 13:03 Blood Culture - Preliminary Blood - Venous No growth after 24 hours. 05/20/21 13:03 Blood Culture - Preliminary Blood - Venous No growth after 24 hours. Procedures Date of Service Date of Service: 05/22/21 Progress Note: A&P Assessment and plan (1) Diverticulitis of intestine with abscess: Status: Acute Assessment and Plan: Abdomen remained soft and benign No significant tenderness No signs of sepsis CT drain whenever INR and platelets are acceptable Patient has longstanding cirrhosis/liver disease Monitored for withdrawal symptoms Rest of management as per hospitalist Continue empiric IV antibiotics Fall Risk Details Current Medications: Current Medications Dextrose/Sodium Chloride (D5ns) 1,000 mls @ 100 mls/hr IVCONT .Q10H [facility] Last Infusion: 05/22/21 10:17 Dose: 0 mls/hr Documented by: Piperacillin Sod/Tazobactam (Sod 3.375 gm/ Sodium Chloride) 50 mls @ 100 mls/hr IV Q6H [facility] Last Infusion: 05/22/21 07:32 Dose: Infused Documented by: Phytonadione 10 mg/ Sodium (Chloride) 51 mls @ 51 mls/hr IV DAILY [facility] Stop: 05/23/21 09:59 Last Admin: 05/22/21 10:04 Dose: 51 mls/hr Documented by: Lactulose (Lactulose 20 Gm/30 Ml Solution) 30 gm PO TID [facility] Last Admin: 05/22/21 10:02 Dose: 30 gm Documented by: Medication (No Benzodiazepines) 1 each MISCELLANE DAILY [facility] Morphine Sulfate (Morphine Sulfate 2 Mg/Ml Cartridge) 2 mg IVPUSH Q4H PRN; Protocol PRN Reason: Pain, Severe (Pain Scale 7-10) Last Admin: 05/22/21 10:03 Dose: 2 mg Documented by: Pharmacy Consult (Consult Rx Perform Med Rec) 1 each MISCELLANE ONCE PRN PRN Reason: Consult order Pharmacy Consult (Consult Rx Perform Med Rec) 1 each MISCELLANE ONCE PRN PRN Reason: Consult order Phenobarbital (Phenobarbital 15 Mg Tablet) 45 mg PO BID [facility]; Protocol Stop: 05/22/21 21:01 Last Admin: 05/22/21 10:03 Dose: 45 mg Documented by: Phenobarbital (Phenobarbital 30 Mg Tablet) 30 mg PO BID [facility]; Protocol Stop: 05/24/21 21:01 Phenobarbital (Phenobarbital 15 Mg Tablet) 15 mg PO DAILY [facility]; Protocol Stop: 05/26/21 09:01 Sodium Chloride (0.9 % Sodium Chloride Flush 3 Ml Syringe) 3 ml IVFLUSH QSHIFT [facility] Last Admin: 05/22/21 07:32 Dose: Not Given Documented by: Thiamine HCl (Thiamine Hcl 100 Mg Tablet) 100 mg PO DAILY [facility] Stop: 05/23/21 09:01 Last Admin: 05/22/21 10:03 Dose: 100 mg Documented by: Time Spent With Patient Time: Total time spent is greater than 50% in coordination of care (as documented) at patient's floor/unit and/or counseling patient: Time with patient: 15 - 24 minutes Quality Stroke Does the patient have a stroke diagnosis?: No VTE Prior VTE?: No VTE Risk Level:: Medical - low VTE Device Contraindication: Treatment Not Indicated VTE Drug Contraindication: Treatment Not Indicated
--- NOTE | 2021-05-22 14:55 | P.PNIM_ITS ---
Subjective Subjective Date of Service: 05/22/21 Review of Systems Follow up diverticulitis Pain is managed Denies chest pain, shortness of breath All other systems are reviewed and are negative Physical Exam Verdana 4l Vital Signs: Verdana 4d Verdana 4d Vital Signs: Verdana 4d Verdana 4Bd Last Vital Signs Verdana 4d Electronic Technologist New 4d Electronic Technologist New 4d Temp 98.3 F 05/22/21 12:00 Electronic Technologist New 4d Pulse 92 05/22/21 12:00 Electronic Technologist NewNew 4d Resp 18 05/22/21 12:00 BP 113/56 L 05/22/21 12:00 Pulse Ox 97 05/22/21 12:00 BMI result Body Mass Index 20.8 Appearing in no acute distress lung sounds are clear to auscultation heart regular rate rhythm, clear S1, S2 positive bowel sounds, abdomen is soft, nontender neuro patient is alert x3, no focal deficits Objective Data Active Medications Dextrose/Sodium Chloride (D5ns) 1,000 mls @ 100 mls/hr IVCONT .Q10H [facility] Last Admin: 05/22/21 12:03 Dose: 100 mls/hr Documented by: COTEMA Piperacillin Sod/Tazobactam (Sod 3.375 gm/ Sodium Chloride) 50 mls @ 100 mls/hr IV Q6H [facility] Last Infusion: 05/22/21 14:02 Dose: 0 mls/hr Documented by: COTEMA Phytonadione 10 mg/ Sodium (Chloride) 51 mls @ 51 mls/hr IV DAILY [facility] Stop: 05/23/21 09:59 Last Infusion: 05/22/21 10:56 Dose: 0 mls/hr Documented by: COTEMA Lactulose (Lactulose 20 Gm/30 Ml Solution) 30 gm PO TID [facility] Last Admin: 05/22/21 10:02 Dose: 30 gm Documented by: COTEMA Medication (No Benzodiazepines) 1 each MISCELLANE DAILY [facility] Morphine Sulfate (Morphine Sulfate 2 Mg/Ml Cartridge) 2 mg IVPUSH Q4H PRN; Protocol PRN Reason: Pain, Severe (Pain Scale 7-10) Last Admin: 05/22/21 10:03 Dose: 2 mg Documented by: COTEMA Pharmacy Consult (Consult Rx Perform Med Rec) 1 each MISCELLANE ONCE PRN PRN Reason: Consult order Pharmacy Consult (Consult Rx Perform Med Rec) 1 each MISCELLANE ONCE PRN PRN Reason: Consult order Phenobarbital (Phenobarbital 15 Mg Tablet) 45 mg PO BID [facility]; Protocol Stop: 05/22/21 21:01 Last Admin: 05/22/21 10:03 Dose: 45 mg Documented by: COTEMA Phenobarbital (Phenobarbital 30 Mg Tablet) 30 mg PO BID [facility]; Protocol Stop: 05/24/21 21:01 Phenobarbital (Phenobarbital 15 Mg Tablet) 15 mg PO DAILY [facility]; Protocol Stop: 05/26/21 09:01 Sodium Chloride (0.9 % Sodium Chloride Flush 3 Ml Syringe) 3 ml IVFLUSH QSHIFT [facility] Last Admin: 05/22/21 07:32 Dose: Not Given Documented by: COTESTELA Non-Admin Reason: IV Running Thiamine HCl (Thiamine Hcl 100 Mg Tablet) 100 mg PO DAILY [facility] Stop: 05/23/21 09:01 Last Admin: 05/22/21 10:03 Dose: 100 mg Documented by: GEORGE Labs CBC & Chem 7: 05/22/21 06:21 05/22/21 06:21 Labs: Laboratory Results - last 24 hr 05/22/21 05/22/21 05/22/21 06:21 06:21 06:22 MCV 107.4 H MCH 36.1 H MCHC 33.6 RDW 14.6 Plt Count 71 L MPV 10.3 Absolute Nucleated RBC 0.020 H Nucleated RBC % (auto) 0.2 PT 30.1 H INR 2.6 H Anion Gap 10 L Estim Creat Clear Calc 135.1 Estimated GFR > 60 Random Glucose 115 Calcium 7.1 L Microbiology Microbiology Results: Microbiology 05/20/21 13:03 Blood Culture - Preliminary Blood - Venous No growth after 24 hours. 05/20/21 13:03 Blood Culture - Preliminary Blood - Venous No growth after 24 hours. Assessment and Plan (1) Diverticulitis of intestine with abscess: Status: Acute Assessment and Plan: 41 year old male with alcohol dependence here with abdominal pain and found to acute diverticulitis with abscess formation, and in alcohol withdrwal state Sepsis d/t diverticulitis with abscess, no severe sepsis (elevated Bilirubin, elevated LFTs, elevated INR and low platlets all related to alcohol liver disease) follow blood cx Acute diverticulitis with absesss -IV Zosyn -Surgery following, aggres with abx, IR for perc drain when INR comes down -ID consult -Follow blood cultures Acute alcoholic hepatitis with hyerbilirubinemia--bili is coming down -Avoid hepatoxins, GI eval -obviously needs to stop drinking -Care consult before discharge Coagulopathy d/t liver failure -Daily INR -Oral Vitamin K -GI consult Alcohol withdrawal with confusion -Phenobarbital -Vitamin B1, folate Hypomagnesemia. Secondary to alcohol use Repleted Thrombocytospenia. Secondary to hyperspenism from chronic alcohol use Cocaine and barbiturate positive Cessation discussed along with tobacco cessation and CARE consult before discharge Elevated ammonia Hepatic Encephalopathy Lactulose --Note as above that he was very confused agitated even combative and lack?judgement to sign out AMA with serious medical condition and therefore had to be medicated with Haldol and Atrax for his own safety. . He was assessed multiple time following this and was ok DVT prophy: No meds given high INR Attending Dr. Jones full code Quality Stroke Does the patient have a stroke diagnosis?: No VTE Prior VTE?: No VTE Risk Level:: Medical - low VTE Device Contraindication: Treatment Not Indicated VTE Drug Contraindication: Treatment Not Indicated
--- NOTE | 2021-05-22 16:57 | MHC.CARE ---
CARE Team met with pt to provide information about available behavioral health treatment options alongside Recovery team's life coach, Trina. Pt is not sure if therapy or medications will help him, but he wants the opportunity to try them. Pt reports a lot of anxiety and stress as well as poor coping skills. CARE Team referred pt to [facility] at pt's request. Pt denies any additional behavioral health needs at this time.
--- NOTE | 2021-05-22 17:05 | MHC.RECOVSUP ---
? Reason for consult:Recovery Support o ? ? ?Current location: ? o ? ? ?Identified substance use concern: Alcohol? - Overdose Support ? ?Intervention: o Community resources provided o Harm reduction discussion ? Additional information: I was able to connect with patient and review his options for Substance Use Disorder with alcohol. Pt was open minded to assistant cross country coach services and literature for community resources. I also suggested supportive, coping skills and harm reduction strategies. Care team was notified. ?
[2021-05-23] VITALS (9 sets, daily range): BP systolic 101–137; BP diastolic 53–64; PULSE 86–95; RESP 17–18; TEMP 36.8–37.7; O2SAT 96–99
[2021-05-23] MEDS: Ibuprofen 400 MG TABLET PO (00:30)
[2021-05-23] MEDS: Piperacillin Sodium/Tazobactam 3.375 GM in 0.9 % Sodium Chloride 50 ML IV ×4 (00:30→18:47)
[2021-05-23 06:44] LABS: Hematocrit 26.5 % (42.0-52.0); Mean Corpuscular Hemoglobin 36.1 pg (27.0-33.0); Mean Corpuscular Volume 106.4 fL (80.0-98.0); Mean Platelet Volume 10.1 fL (9.4-12.4); Red Blood Count 2.49 X10*6/uL (4.60-5.80); Red Cell Distribution Width 14.5 % (11.0-16.0); White Blood Count 9.9 X10*3/uL (4.8-10.8)
[2021-05-23 06:59] LABS: INTERNATIONAL NORM RATIO 2.9 (0.9-1.1); Prothrombin Time 33.9 SEC (9.9-13.0)
[2021-05-23 07:04] LABS: Platelet Count 74 X10*3/uL (160-400)
[2021-05-23] MEDS: Lactulose 20 GM/30 ML SOLUTION 30 GM PO ×3 (08:08→21:04)
[2021-05-23] MEDS: PHENobarbitaL 30 MG TABLET PO ×2 (08:09→21:04)
[2021-05-23] MEDS: Thiamine HCL 100 MG TABLET PO (08:09)
[2021-05-23] MEDS: Dextrose 5 % and 0.9 % NaCl 1,000 ML 100 ML IVCONT (09:46)
[2021-05-23] MEDS: Phytonadione (Vit K1) 10 MG in 0.9 % Sodium Chloride 50 ML 51 MG IV (10:32)
--- NOTE | 2021-05-23 10:36 | P.PNGS_ITS ---
Subjective Subjective Date of Service: 05/23/21 Interval history: Says he feels well Denies abdominal pain No GI complaints No events reported Physical Exam Vital Signs: Vital Signs: Last Vital Signs Temp 98.3 F 05/23/21 07:45 Pulse 86 05/23/21 07:45 Resp 18 05/23/21 07:45 BP 101/58 L 05/23/21 07:45 Pulse Ox 97 05/23/21 07:45 BMI result Body Mass Index 20.8 Const: General: comfortable and no acute distress Eyes: Sclerae: sclerae normal (Icteric) Resp: Effort & Inspection: normal respiratory effort Cardio: Rate: regular rate GI: Palpation (GI): Soft to palpation, not firm, nontender and no guarding Objective Data Active Medications Dextrose/Sodium Chloride (D5ns) 1,000 mls @ 100 mls/hr IVCONT .Q10H [facility] Last Admin: 05/23/21 09:46 Dose: 100 mls/hr Documented by: DIANA Piperacillin Sod/Tazobactam (Sod 3.375 gm/ Sodium Chloride) 50 mls @ 100 mls/hr IV Q6H [facility] Last Infusion: 05/23/21 08:15 Dose: 0 mls/hr Documented by: DIANA Lactulose (Lactulose 20 Gm/30 Ml Solution) 30 gm PO TID [facility] Last Admin: 05/23/21 08:08 Dose: 30 gm Documented by: DIANA Medication (No Benzodiazepines) 1 each MISCELLANE DAILY [facility] Morphine Sulfate (Morphine Sulfate 2 Mg/Ml Cartridge) 2 mg IVPUSH Q4H PRN; Protocol PRN Reason: Pain, Severe (Pain Scale 7-10) Last Admin: 05/22/21 16:05 Dose: 2 mg Documented by: COTEMA Pharmacy Consult (Consult Rx Perform Med Rec) 1 each MISCELLANE ONCE PRN PRN Reason: Consult order Pharmacy Consult (Consult Rx Perform Med Rec) 1 each MISCELLANE ONCE PRN PRN Reason: Consult order Phenobarbital (Phenobarbital 30 Mg Tablet) 30 mg PO BID [facility]; Protocol Stop: 05/24/21 21:01 Last Admin: 05/23/21 08:09 Dose: 30 mg Documented by: DIANA Phenobarbital (Phenobarbital 15 Mg Tablet) 15 mg PO DAILY [facility]; Protocol Stop: 05/26/21 09:01 Sodium Chloride (0.9 % Sodium Chloride Flush 3 Ml Syringe) 3 ml IVFLUSH QSHIFT [facility] Last Admin: 05/23/21 08:12 Dose: Not Given Documented by: DIANA Non-Admin Reason: IV Running Labs CBC & Chem 7: 05/23/21 06:20 05/22/21 06:21 Labs: Laboratory Results - last 24 hr 05/23/21 05/23/21 06:20 06:20 MCV 106.4 H MCH 36.1 H MCHC 34.0 RDW 14.5 Plt Count 74 L MPV 10.1 Absolute Nucleated RBC 0.000 Nucleated RBC % (auto) 0.0 PT 33.9 H INR 2.9 H Microbiology Microbiology Results: Microbiology 05/20/21 13:03 Blood Culture - Preliminary Blood - Venous No growth after 48 hours. 05/20/21 13:03 Blood Culture - Preliminary Blood - Venous No growth after 48 hours. Procedures Date of Service Date of Service: 05/23/21 Progress Note: A&P Assessment and plan (1) Diverticulitis of intestine with abscess: Status: Acute Assessment and Plan: Abdomen remained soft and benign No tenderness Diverticular abscess - plan CT drainage once INR acceptable Will review films with radiologist Continue IV antibiotics Exam benign Has chronic liver disease Fall Risk Details Current Medications: Current Medications Dextrose/Sodium Chloride (D5ns) 1,000 mls @ 100 mls/hr IVCONT .Q10H [facility] Last Admin: 05/23/21 09:46 Dose: 100 mls/hr Documented by: Piperacillin Sod/Tazobactam (Sod 3.375 gm/ Sodium Chloride) 50 mls @ 100 mls/hr IV Q6H [facility] Last Infusion: 05/23/21 08:15 Dose: Infused Documented by: Lactulose (Lactulose 20 Gm/30 Ml Solution) 30 gm PO TID [facility] Last Admin: 05/23/21 08:08 Dose: 30 gm Documented by: Medication (No Benzodiazepines) 1 each MISCELLANE DAILY [facility] Morphine Sulfate (Morphine Sulfate 2 Mg/Ml Cartridge) 2 mg IVPUSH Q4H PRN; Protocol PRN Reason: Pain, Severe (Pain Scale 7-10) Last Admin: 05/22/21 16:05 Dose: 2 mg Documented by: Pharmacy Consult (Consult Rx Perform Med Rec) 1 each MISCELLANE ONCE PRN PRN Reason: Consult order Pharmacy Consult (Consult Rx Perform Med Rec) 1 each MISCELLANE ONCE PRN PRN Reason: Consult order Phenobarbital (Phenobarbital 30 Mg Tablet) 30 mg PO BID [facility]; Protocol Stop: 05/24/21 21:01 Last Admin: 05/23/21 08:09 Dose: 30 mg Documented by: Phenobarbital (Phenobarbital 15 Mg Tablet) 15 mg PO DAILY [facility]; Protocol Stop: 05/26/21 09:01 Sodium Chloride (0.9 % Sodium Chloride Flush 3 Ml Syringe) 3 ml IVFLUSH QSHIFT [facility] Last Admin: 05/23/21 08:12 Dose: Not Given Documented by: Time Spent With Patient Time: Total time spent is greater than 50% in coordination of care (as documented) at patient's floor/unit and/or counseling patient: Time with patient: 15 - 24 minutes Quality Stroke Does the patient have a stroke diagnosis?: No VTE Prior VTE?: No VTE Risk Level:: Medical - low VTE Device Contraindication: Treatment Not Indicated VTE Drug Contraindication: Treatment Not Indicated
--- NOTE | 2021-05-23 11:35 | P.PNIM_ITS ---
Subjective Subjective Date of Service: 05/23/21 Review of Systems Follow-up diverticular abscess Feels good today, out of bed sitting eating at a table Denies pain All other systems are reviewed and are negative Physical Exam Verdana 4l Vital Signs: Verdana 4d Verdana 4d Vital Signs: Verdana 4d Verdana 4Bd Last Vital Signs Verdana 4d Heavy Equipment Operating Engineer New 4d Heavy Equipment Operating Engineer New 4d Temp 98.3 F 05/23/21 07:45 Heavy Equipment Operating Engineer New 4d Pulse 86 05/23/21 07:45 Heavy Equipment Operating Engineer NewNew 4d Resp 18 05/23/21 07:45 BP 101/58 L 05/23/21 07:45 Pulse Ox 97 05/23/21 07:45 BMI result Body Mass Index 20.8 Appearing in no acute distress Jaundiced lung sounds are clear to auscultation heart regular rate rhythm, clear S1, S2 positive bowel sounds, abdomen is soft, nontender neuro patient is alert x3, no focal deficits Objective Data Active Medications Dextrose/Sodium Chloride (D5ns) 1,000 mls @ 100 mls/hr IVCONT .Q10H [facility] Last Admin: 05/23/21 09:46 Dose: 100 mls/hr Documented by: DIANA Piperacillin Sod/Tazobactam (Sod 3.375 gm/ Sodium Chloride) 50 mls @ 100 mls/hr IV Q6H [facility] Last Infusion: 05/23/21 08:15 Dose: 0 mls/hr Documented by: DIANA Lactulose (Lactulose 20 Gm/30 Ml Solution) 30 gm PO TID [facility] Last Admin: 05/23/21 08:08 Dose: 30 gm Documented by: DIANA Medication (No Benzodiazepines) 1 each MISCELLANE DAILY [facility] Morphine Sulfate (Morphine Sulfate 2 Mg/Ml Cartridge) 2 mg IVPUSH Q4H PRN; Protocol PRN Reason: Pain, Severe (Pain Scale 7-10) Last Admin: 05/22/21 16:05 Dose: 2 mg Documented by: COTEMA Pharmacy Consult (Consult Rx Perform Med Rec) 1 each MISCELLANE ONCE PRN PRN Reason: Consult order Pharmacy Consult (Consult Rx Perform Med Rec) 1 each MISCELLANE ONCE PRN PRN Reason: Consult order Phenobarbital (Phenobarbital 30 Mg Tablet) 30 mg PO BID [facility]; Protocol Stop: 05/24/21 21:01 Last Admin: 05/23/21 08:09 Dose: 30 mg Documented by: DIANA Phenobarbital (Phenobarbital 15 Mg Tablet) 15 mg PO DAILY [facility]; Protocol Stop: 05/26/21 09:01 Sodium Chloride (0.9 % Sodium Chloride Flush 3 Ml Syringe) 3 ml IVFLUSH QSHIFT [facility] Last Admin: 05/23/21 08:12 Dose: Not Given Documented by: DIANA Non-Admin Reason: IV Running Labs CBC & Chem 7: 05/23/21 06:20 05/22/21 06:21 Labs: Laboratory Results - last 24 hr 05/23/21 05/23/21 06:20 06:20 MCV 106.4 H MCH 36.1 H MCHC 34.0 RDW 14.5 Plt Count 74 L MPV 10.1 Absolute Nucleated RBC 0.000 Nucleated RBC % (auto) 0.0 PT 33.9 H INR 2.9 H Microbiology Microbiology Results: Microbiology 05/20/21 13:03 Blood Culture - Preliminary Blood - Venous No growth after 48 hours. 05/20/21 13:03 Blood Culture - Preliminary Blood - Venous No growth after 48 hours. Assessment and Plan (1) Acute alcoholic hepatitis: Status: Acute Assessment and Plan: 41 year old male with alcohol dependence here with abdominal pain and found to acute diverticulitis with abscess formation, and in alcohol withdrwal state Sepsis d/t diverticulitis with abscess, no severe sepsis (elevated Bilirubin, elevated LFTs, elevated INR and low platlets all related to alcohol liver disease) follow blood cx Acute diverticulitis with absesss IV Zosyn Surgery following, agrees with abx, IR for perc drain when INR comes down ID consult blood cx neg after 48hrs Acute alcoholic hepatitis with hyerbilirubinemia--bili is coming down -Avoid hepatoxins, GI eval -obviously needs to stop drinking -Care consult before discharge Coagulopathy d/t liver failure Still high Daily INR IV vitamin k in the morning FFP tonight GI following Alcohol withdrawal with confusion, resolving Phenobarbital Vitamin? B1, folate Hypomagnesemia. Secondary to alcohol use Repleted Thrombocytospenia. Secondary to hyperspenism from chronic alcohol use Cocaine and barbiturate positive Cessation discussed along with tobacco cessation and CARE consult before discharge Elevated ammonia Hepatic Encephalopathy Lactulose --Note as above that he was very confused agitated even combative and lack?judgement to sign out AMA with serious medical condition and therefore had to be medicated with Haldol and Atrax for his own safety. .? He was assessed multiple time following this and was ok DVT prophy: No meds given high INR Attending Dr. Jones full code Quality Stroke Does the patient have a stroke diagnosis?: No VTE Prior VTE?: No VTE Risk Level:: Medical - low VTE Device Contraindication: Treatment Not Indicated VTE Drug Contraindication: Treatment Not Indicated
--- NOTE | 2021-05-23 14:22 | MHC.CM.PN ---
PER REVIEW OF EMR, PATIENT STILL NOT MEDICALLY STABLE FOR DISCHARGE PLAN IS HOME WITH OUTPATIENT RECOVERY RESOURCES.
[2021-05-23 18:17] LABS: Alanine Aminotransferase 28 U/L (0-40); Albumin Level 2.3 g/dL (3.5-5.0); Alkaline Phosphatase 178 U/L (39-117); Aspartate Amino Transferase 85 U/L (5-37); Bilirubin Direct 3.9 mg/dL (0.0-0.5); Bilirubin Total 5.9 mg/dL (0.0-1.0); Total Protein 6.1 g/dL (6.5-8.0)
[2021-05-24] MEDS: Piperacillin Sodium/Tazobactam 3.375 GM in 0.9 % Sodium Chloride 50 ML IV ×2 (00:33→06:25)
[2021-05-24 03:41] VITALS: BP 128/62; PULSE 85; RESP 19; TEMP 38; O2SAT 97
[2021-05-24] MEDS: Phytonadione (Vit K1) 10 MG in 0.9 % Sodium Chloride 50 ML 51 MG IV (05:24)
[2021-05-24 05:59] LABS: Hematocrit 24.1 % (42.0-52.0); Hemoglobin 8.3 g/dl (14.0-18.0); Mean Corpuscular HGB Conc 34.4 g/dl (31.0-36.0); Mean Corpuscular Hemoglobin 36.4 pg (27.0-33.0); Mean Corpuscular Volume 105.7 fL (80.0-98.0); Mean Platelet Volume 10.2 fL (9.4-12.4); Red Blood Count 2.28 X10*6/uL (4.60-5.80); Red Cell Distribution Width 14.2 % (11.0-16.0); White Blood Count 8.8 X10*3/uL (4.8-10.8)
[2021-05-24 06:00] LABS: Platelet Count 73 X10*3/uL (160-400)
[2021-05-24 06:28] LABS: Alanine Aminotransferase 24 U/L (0-40); Albumin Level 2.3 g/dL (3.5-5.0); Alkaline Phosphatase 162 U/L (39-117); Aspartate Amino Transferase 67 U/L (5-37); Bilirubin Direct 4.1 mg/dL (0.0-0.5); Bilirubin Total 6.4 mg/dL (0.0-1.0); Total Protein 5.9 g/dL (6.5-8.0)
[2021-05-24 06:42] LABS: Anion Gap 12 (12-20); Blood Urea Nitrogen 3 mg/dL (9-16); Calcium 6.8 mg/dL (8.4-10.2); Carbon Dioxide 22 mmol/L (22-29); Chloride 105 mmol/L (96-108); Creatinine Clr Calc Pharmacy 145.4; Estimated Glomerular Filt Rate > 60; Glucose Random 100 mg/dL (60-115); Potassium 2.7 mmol/L (3.3-5.1); Sodium 136 mmol/L (135-145)
[2021-05-24] MEDS: PHENobarbitaL 30 MG TABLET PO (07:28)
[2021-05-24] MEDS: Lactulose 20 GM/30 ML SOLUTION 30 GM PO (07:28)
[2021-05-24] MEDS: 0.9 % Sodium Chloride Flush 3 ML SYRINGE IVFLUSH (07:31)
[2021-05-24 07:57] VITALS: BP 108/58; PULSE 84; RESP 18; TEMP 37.1; O2SAT 97
[2021-05-24 07:58] LABS: HBc Num1 0.55 S/CO (0.00-0.79); HBsAGNum1 0.23 S/CO (0.00-0.99); Hepatitis B Core Antibody Nonreactive (Nonreactive); Hepatitis B Surface Antigen Negative (Negative)
[2021-05-24 08:02] LABS: ~Hepatitis B Surface Antibody NONREACTIVE (Nonreactive); ~Hepatitis C Antibody Nonreactive (Nonreactive)
[2021-05-24 09:50] LABS: INTERNATIONAL NORM RATIO 2.7 (0.9-1.1); Prothrombin Time 31.6 SEC (9.9-13.0)
--- NOTE | 2021-05-24 10:35 | P.DS_ITS ---
DS: Providers Provider Date of Service: 05/24/21 Date of admission: 05/20/21 18:10 Primary care physician: Unknown Physician Consults: 05/20/21 18:05 Consult to Gastroenterology Routine Consulting Provider: Shiela Valladares Reason for consultation: alcoholic hepatitis Has provider been notified: No Consult to General Surgery Routine Consulting Provider: Nishant Paz Reason for consultation: diverticular abscess Has provider been notified: Yes 05/21/21 08:39 Consult to Care Team Routine Comment: Reason for consultation: etoh abuse (beer ,wine annmarie liquor),mejia llucinations,iv drug abuse Attending physician on discharge: Daniel Sebastian Discharging clinician: Fawn Villalpando DS: Diagnosis Discharge Diagnosis (1) Acute alcoholic hepatitis: Status: Acute (2) Diverticulitis of intestine with abscess: Status: Acute (3) Alcohol withdrawal: Status: Acute DS: Summary Hospital Course Hospital Course: HP as per admitting provider 41-year-old male with past medical history of ETOH abuse, cirrhosis presents to the ED with lower abdominal that is severe? and is assicated with? nausea, vomiting, decreased p.o. intake, fever of up to 103 at home,? jaundice, and visual hallucinations for about 4 days now since he stopped drinking.? Typically drinks about 10 nips daily and 4 beers, has beeen attempting to? cut down. He tells me he has not drank in for days but told ED provider that? he had? beer yesterday.? Work in ED included WBC of? 11.6, US of abdomen? showed fatty liver and gall bladder sludge.? A CT of abdoment shows sigmoid diverticulitis with? with peridivericular abscess that measures?4.9 x 2.8 x 3.5 cm. There is an air fluid level internally. No free intraperitoneal air. Normal appendix.? Discussed with Dr. Paz and advises IR guided drainage given elevated INR of 2.. During my interaction with patient he was stacy jesus without overt signs of alcohol withdrawal but it should be of note that he has been treated with Phenobarbital. Additionally mejia positive cocaine and barbiuturates in the urine. Mag level is 1.1. Temperature here is 101 and has gone down . Acute diverticulitis with absess. Treated with IV Zosyn. General Surgery evaluated him and agreed To continue with antibiotics. The plan was to have the abscess drained by IR however the patient remained coagulopathic with INR so elevated despite IV vitamin K and FFP spirits his blood cultures were negative. Acute alcoholic hepatitis with hyerbilirubinemia . Bilirubin was improving he was seen by the care team and courage to stop drinking. Alcohol withdrawal with confusion . Encephalopathy significantly improved after treatment with phenobarbital and vitamins. Unfortunately Patient stated that he wanted to leave against medical advice. He was alert and oriented x 3 and repeated back to me where he was, who he is and time and date. He understood that if he leaves and does not continue IV antibiotics his condition could worsen and he can even . He stated his awareness of this and stated that he was willing to go anyway. He was told to return to the ED if symptoms worsen. He will be sent with molly and Kaleb to his pharmacy. Time Spent with Patient Time attestation: Total time spent providing and/or coordinating discharge services: Discharge coordination time: Greater than 30 minutes Quality: Stroke Does the patient have a stroke diagnosis?: No Physical Exam Vital Signs: Vital Signs: Last Vital Signs Temp 98.8 F 05/24/21 07:57 Pulse 84 05/24/21 07:57 Resp 18 05/24/21 07:57 BP 108/58 L 05/24/21 07:57 Pulse Ox 97 05/24/21 07:57 BMI result Body Mass Index 20.8 left against medical advice DS: Data Data Completed and Pending Labs on day of discharge: Laboratory Results - last 24 hr 05/23/21 05/23/21 05/23/21 17:43 17:43 17:44 WBC RBC Hgb Hct MCV MCH MCHC RDW Plt Count MPV Absolute Nucleated RBC Nucleated RBC % (auto) PT INR Sodium Potassium Chloride Carbon Dioxide Anion Gap BUN Creatinine Estim Creat Clear Calc Estimated GFR Random Glucose Calcium Total Bilirubin 5.9 H Direct Bilirubin 3.9 H AST 85 H ALT 28 Alkaline Phosphatase 178 H D Total Protein 6.1 L Albumin 2.3 L Hep Bs Antigen Negative Hep Bs Antibody NONREACTIVE Hep B Core Total Ab Nonreactive Hepatitis C Ab (EIA) Nonreactive Blood Type O Positive Antibody Screen NEGATIVE 05/24/21 05/24/21 05/24/21 05:28 05:28 05:28 WBC 8.8 RBC 2.28 L Hgb 8.3 L Hct 24.1 L MCV 105.7 H MCH 36.4 H MCHC 34.4 RDW 14.2 Plt Count 73 L MPV 10.2 Absolute Nucleated RBC 0.000 Nucleated RBC % (auto) 0.0 PT INR Sodium 136 Potassium 2.7 L Chloride 105 Carbon Dioxide 22 Anion Gap 12 BUN 3 L Creatinine 0.66 Estim Creat Clear Calc 145.4 Estimated GFR > 60 Random Glucose 100 Calcium 6.8 L Total Bilirubin 6.4 H Direct Bilirubin 4.1 H AST 67 H ALT 24 Alkaline Phosphatase 162 H Total Protein 5.9 L Albumin 2.3 L Hep Bs Antigen Hep Bs Antibody Hep B Core Total Ab Hepatitis C Ab (EIA) Blood Type Antibody Screen 05/24/21 09:30 WBC RBC Hgb Hct MCV MCH MCHC RDW Plt Count MPV Absolute Nucleated RBC Nucleated RBC % (auto) PT 31.6 H INR 2.7 H Sodium Potassium Chloride Carbon Dioxide Anion Gap BUN Creatinine Estim Creat Clear Calc Estimated GFR Random Glucose Calcium Total Bilirubin Direct Bilirubin AST ALT Alkaline Phosphatase Total Protein Albumin Hep Bs Antigen Hep Bs Antibody Hep B Core Total Ab Hepatitis C Ab (EIA) Blood Type Antibody Screen Preliminary micro results at discharge 05/20/21 13:03 Blood Culture - Preliminary Blood - Venous No growth after 48 hours. 05/20/21 13:03 Blood Culture - Preliminary Blood - Venous No growth after 48 hours. Discharge Plan Discharge Anticipated Discharge Date/Time: 05/24/21 10:52 Patient Disposition: Left Against Medical Advice Discharge Diagnosis: Acute diverticulitis with abscess Acute alcoholic hepatitis Alcohol withdrawal Referrals: Physician,Unknown J [Primary Care Provider] - 1 Week Discharge Medications: New levofloxacin 500 mg tablet 500 mg PO DAILY Qty: 14 RF: 0 metronidazole [Flagyl] 375 mg capsule 500 mg PO Q8H Qty: 42 RF: 0 No Action ibuprofen 200 mg Tablet 400 mg PO Q6H PRN (Reason: Pain) RF: 0 Discharge Orders: Discharge Order (Routine); Ordered 05/24/21 Ordered By: Fawn Villalpando Diet: advance to usual diet Activity on Discharge: As tolerated Care Plan Goals: Return to the hospital if symptoms worsen Health Concerns: Acute diverticulitis with abscess Acute alcoholic hepatitis Alcohol withdrawal Plan of Treatment: Unfortunately Patient stated that he wanted to leave against medical advice. He was alert and oriented x 3 and repeated back to me where he was, who he is and time and date. He understood that if he leaves and does not continue IV antibiotics his condition could worsen and he can even . He stated his awareness of this and stated that he was willing to go anyway. He was told to return to the ED if symptoms worsen. He will be sent with Cody to his pharmacy. Assessment: see discharge summary
--- NOTE | 2021-05-24 10:38 | P.PNGS_ITS ---
Subjective Subjective Date of Service: 05/24/21 Interval history: Denies abdominal pain Says he feels well except for being ?sore all over? Physical Exam Vital Signs: Vital Signs: Last Vital Signs Temp 98.8 F 05/24/21 07:57 Pulse 84 05/24/21 07:57 Resp 18 05/24/21 07:57 BP 108/58 L 05/24/21 07:57 Pulse Ox 97 05/24/21 07:57 BMI result Body Mass Index 20.8 Const: Other: Appears anxious General: no acute distress Resp: Effort & Inspection: normal respiratory effort Cardio: Rate: regular rate GI: Palpation (GI): Soft to palpation, not firm and nontender Objective Data Active Medications Piperacillin Sod/Tazobactam (Sod 3.375 gm/ Sodium Chloride) 50 mls @ 100 mls/hr IV Q6H [facility] Last Infusion: 05/24/21 07:32 Dose: 0 mls/hr Documented by: DIANA Phytonadione 10 mg/ Sodium (Chloride) 51 mls @ 51 mls/hr IV DAILY@0500 [facility] Stop: 05/25/21 05:59 Last Infusion: 05/24/21 06:39 Dose: 51 mls/hr Documented by: KAUR Lactulose (Lactulose 20 Gm/30 Ml Solution) 30 gm PO TID [facility] Last Admin: 05/24/21 07:28 Dose: 30 gm Documented by: DIANA Medication (No Benzodiazepines) 1 each MISCELLANE DAILY [facility] Morphine Sulfate (Morphine Sulfate 2 Mg/Ml Cartridge) 2 mg IVPUSH Q4H PRN; Protocol PRN Reason: Pain, Severe (Pain Scale 7-10) Last Admin: 05/22/21 16:05 Dose: 2 mg Documented by: LACHELLEEMA Pharmacy Consult (Consult Rx Perform Med Rec) 1 each MISCELLANE ONCE PRN PRN Reason: Consult order Pharmacy Consult (Consult Rx Perform Med Rec) 1 each MISCELLANE ONCE PRN PRN Reason: Consult order Phenobarbital (Phenobarbital 30 Mg Tablet) 30 mg PO BID [facility]; Protocol Stop: 05/24/21 21:01 Last Admin: 05/24/21 07:28 Dose: 30 mg Documented by: DIANA Phenobarbital (Phenobarbital 15 Mg Tablet) 15 mg PO DAILY [facility]; Protocol Stop: 05/26/21 09:01 Sodium Chloride (0.9 % Sodium Chloride Flush 3 Ml Syringe) 3 ml IVFLUSH QSHIFT [facility] Last Admin: 05/24/21 07:31 Dose: 3 ml Documented by: DIANA Labs CBC & Chem 7: 05/24/21 05:28 05/24/21 05:28 Labs: Laboratory Results - last 24 hr 05/23/21 05/23/21 05/23/21 17:43 17:43 17:44 MCV MCH MCHC RDW Plt Count MPV Absolute Nucleated RBC Nucleated RBC % (auto) PT INR Anion Gap Estim Creat Clear Calc Estimated GFR Random Glucose Calcium Total Bilirubin 5.9 H Direct Bilirubin 3.9 H AST 85 H ALT 28 Alkaline Phosphatase 178 H D Total Protein 6.1 L Albumin 2.3 L Hep Bs Antigen Negative Hep Bs Antibody NONREACTIVE Hep B Core Total Ab Nonreactive Hepatitis C Ab (EIA) Nonreactive Blood Type O Positive Antibody Screen NEGATIVE 05/24/21 05/24/21 05/24/21 05:28 05:28 05:28 MCV 105.7 H MCH 36.4 H MCHC 34.4 RDW 14.2 Plt Count 73 L MPV 10.2 Absolute Nucleated RBC 0.000 Nucleated RBC % (auto) 0.0 PT INR Anion Gap 12 Estim Creat Clear Calc 145.4 Estimated GFR > 60 Random Glucose 100 Calcium 6.8 L Total Bilirubin 6.4 H Direct Bilirubin 4.1 H AST 67 H ALT 24 Alkaline Phosphatase 162 H Total Protein 5.9 L Albumin 2.3 L Hep Bs Antigen Hep Bs Antibody Hep B Core Total Ab Hepatitis C Ab (EIA) Blood Type Antibody Screen 05/24/21 09:30 MCV MCH MCHC RDW Plt Count MPV Absolute Nucleated RBC Nucleated RBC % (auto) PT 31.6 H INR 2.7 H Anion Gap Estim Creat Clear Calc Estimated GFR Random Glucose Calcium Total Bilirubin Direct Bilirubin AST ALT Alkaline Phosphatase Total Protein Albumin Hep Bs Antigen Hep Bs Antibody Hep B Core Total Ab Hepatitis C Ab (EIA) Blood Type Antibody Screen Procedures Date of Service Date of Service: 05/24/21 Progress Note: A&P Assessment and plan (1) Diverticulitis of intestine with abscess: Status: Acute Assessment and Plan: Remains afebrile No abdominal pain or tenderness at this time Awaiting CT drainage for diverticular abscess INR however would be difficult to control because of his coagulopathy from liver disease Continue IV antibiotics for now Fall Risk Details Current Medications: Current Medications Piperacillin Sod/Tazobactam (Sod 3.375 gm/ Sodium Chloride) 50 mls @ 100 mls/hr IV Q6H [facility] Last Infusion: 05/24/21 07:32 Dose: Infused Documented by: Phytonadione 10 mg/ Sodium (Chloride) 51 mls @ 51 mls/hr IV DAILY@0500 [facility] Stop: 05/25/21 05:59 Last Infusion: 05/24/21 06:39 Dose: Infused Documented by: Lactulose (Lactulose 20 Gm/30 Ml Solution) 30 gm PO TID [facility] Last Admin: 05/24/21 07:28 Dose: 30 gm Documented by: Medication (No Benzodiazepines) 1 each MISCELLANE DAILY [facility] Morphine Sulfate (Morphine Sulfate 2 Mg/Ml Cartridge) 2 mg IVPUSH Q4H [facility]N; Protocol PRN Reason: Pain, Severe (Pain Scale 7-10) Last Admin: 05/22/21 16:05 Dose: 2 mg Documented by: Pharmacy Consult (Consult Rx Perform Med Rec) 1 each MISCELLANE ONCE PRN PRN Reason: Consult order Pharmacy Consult (Consult Rx Perform Med Rec) 1 each MISCELLANE ONCE PRN PRN Reason: Consult order Phenobarbital (Phenobarbital 30 Mg Tablet) 30 mg PO BID [facility]; Protocol Stop: 05/24/21 21:01 Last Admin: 05/24/21 07:28 Dose: 30 mg Documented by: Phenobarbital (Phenobarbital 15 Mg Tablet) 15 mg PO DAILY [facility]; Protocol Stop: 05/26/21 09:01 Sodium Chloride (0.9 % Sodium Chloride Flush 3 Ml Syringe) [facility] Admin: 05/24/21 07:31 Dose: 3 ml Documented by: Time Spent With Patient Time: Total time spent is greater than 50% in coordination of care (as documented) at patient's floor/unit and/or counseling patient: Time with patient: 15 - 24 minutes Quality Stroke Does the patient have a stroke diagnosis?: No VTE Prior VTE?: No VTE Risk Level:: Medical - low VTE Device Contraindication: Treatment Not Indicated VTE Drug Contraindication: Treatment Not Indicated
--- NOTE | 2021-05-24 12:12 | MHC.CM.PN ---
NURSE EXTENSION WORK DIRECTOR NOTE CASE DISCUSSED WITH STAFF NURSE, HOSPITALIST AND MET WITH PATIENT , HE IS SIGHING HIMSELF OUT AGAINST MEDICAL ADVICE . TODay
[2021-05-26 07:53] LABS: Hepatitis A Antibody IgM 0.18 Index (0-0.79); ~Hepatitis A Antibody IgM Nonreactive (Nonreactive)
[2021-05-26 08:21] LABS: HBS Num1 0.05 mIU/mL (0-7.99)
== END 2021-05-24 11:20 | disposition left against medical advice (07) | DRG 720 ==
LOC: HO.ED 17:30 → HO.EDOVER 18:23 → HO.S3 19:02
PROVIDERS: Internal Medicine Gastroenterology; Physician Assistant; Admitting Provider Internal Medicine; Emergency Provider Internal Medicine; Visit Provider Nurse Practitioner Acute Care
DX: A41.9 Sepsis, unspecified organism (principal); F10.231 Alcohol dependence with withdrawal delirium; D68.9 Coagulation defect, unspecified; K57.20 Diverticulitis of large intestine with perforation and abscess without bleeding; K72.90 Hepatic failure, unspecified without coma; K70.10 Alcoholic hepatitis without ascites; E83.42 Hypomagnesemia; Z20.822 Contact with and (suspected) exposure to COVID-19; F17.210 Nicotine dependence, cigarettes, uncomplicated; Z71.6 Tobacco abuse counseling; Z79.1 Long term (current) use of non-steroidal anti-inflammatories (NSAID); Z79.899 Other long term (current) drug therapy
CPT/HCPCS: 36415; 71045; 74176; 74177; 76705; 80048; 80053; 80076; 80307; 81001; 82077; 82140; 83605; 83690; 83735; 85025; 85027; 85610; 85730; 86704; 86706; 86709; 86803; 86850; 86900; 86901; 87040; 87340; 87635; 93005; 96361; 96365; 96366; 96367; 96372; 99285; 99291; J0696; J1885; J2270; J2543; J2560; J3411; J3430; J3475; P9017; Q9967